=== PATIENT | female | born 2000 | race Caucasian/White ===

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

== ENCOUNTER 2022-03-22 20:19 | Observation (INO) | payer OTHER, SELFPAY ==
--- NOTE | 2022-03-22 21:28 | PM.OBTRLD ---
Visit Information Visit Information Date of evaluation: 03/22/22 Primary OB Provider: Channing Bragg On-call OB Provider: Jeri Gilbert Reason for Evaluation: Yes non-stress test Comments/Additional reasons for admission: Patient is a 22-year-old at 27 weeks and 3 days gestation brought in by EMS due to nausea, vomiting, vaginal discharge and pelvic pain. Today she has had significant nausea and vomiting to the point that she is unable to keep anything down. Baby has also been less active and she has had some pelvic pain. No bleeding but she also notes increased vaginal discharge. She has traveled recently. Vital Signs Vital Signs: Temperature 99.0? blood pressure 103/66 heart rate 88 PFSH Medical History Acne ADHD Anemia (~2020) Anxiety Autism Depression History of recurrent miscarriages Ovarian cyst (~2020) PID (acute pelvic inflammatory disease) PTSD (post-traumatic stress disorder) (~2019) Recurrent candidiasis of vagina Recurrent UTI (~2019) Seizures (~2002) Surgical History Anesthesia H/O hand surgery History of removal of skin mole Family History Father Diabetes mellitus Mental health problem Grandmother Diabetes mellitus Lung cancer Cancer Mental health problem Hypertension Grandfather Diabetes mellitus Prostate cancer Cancer History of heart disease Mental health problem Mother Gestational diabetes Diabetes mellitus Mental health problem Grandmother Cancer Hypertension Hyperlipidemia Grandfather Family estrangement Sister Depression Anxiety Schizophrenia Sister Anxiety Depression Bipolar disorder Sister Anxiety Depression Autism Brother Anxiety Depression Autism Mental health problem Sister Anxiety Autism Social History marital status: number of children: 0 household members: spouse lives independently: Yes housing: apartment pets and animals: Yes (1 dog 1 cat; aware of toxo) education level: high school occupational status: unemployed current occupational exposures/hazards: No special festus needs: No travel history: recent (domestic only) seatbelt use: always water heater temp set < 120 deg: No (Will call landlord to adjust ) working smoke detector in home: Yes fire extinguisher in home: Yes carbon monox detector in home: Yes firearms in home: Yes firearms unloaded and locked: Yes do you feel safe at home: Yes Smoking Status: Former smoker (former vape use, quit) second hand exposure: Yes (while visiting family (mom smokes)) alcohol intake: never substance use type: marijuana (quit when she learned she was ) during the past year weight has: other (fluctuates~15-20 lb) well-balanced diet: daily or most days daily servings fruits/ve-4 caffeine: Yes (occasionally, aware of 200mg limit) Type(s) of exercise: walking duration: 15-30 minutes/day Evaluation Evaluation Baseline heart rate: 140 Variability: Moderate (11-25) monitor accelerations: Present Monitor Decelerations: Absent Category of Tracing: Reactive Non-invasive Membranes Rupture Test: negative Diagnosis, Plan/Disposition Final Diagnosis (1) 27 weeks gestation of : Status: Acute (2) Gastroenteritis: Status: Acute Plan/Disposition Plan: 22-year-old at 27 weeks and 3 days gestation with nausea, vomiting, vaginal discharge and pelvic pain. NST reactive without concern for labor. AmniSure negative. UA not suggestive of UTI and wet mount also negative. Patient felt much improved after a L of LR and ondansetron IV. She has a OB appointment tomorrow morning with Dr. Bragg which she will keep. OB Disposition: home
[2022-03-22 21:47] LABS: Appearance Urine UA CLEAR; Bilirubin Urine UA NEGATIVE (NEGATIVE); Color Urine UA YELLOW; Glucose Urine UA NEGATIVE (Negative); Ketones Urine UA TRACE (NEGATIVE); Leukocyte Esterase Urine UA TRACE (NEGATIVE); Nitrite Urine UA NEGATIVE (Negative); Occult Blood Urine UA NEGATIVE (Negative); Protein Urine UA NEGATIVE (Negative); Specific Gravity Urine UA 1.025 (1.000-1.035); Urobilinogen Urine UA 0.2 E.U./dL (0.2)
[2022-03-22 21:53] LABS: RBC Urine None Seen (0-5/HPF); WBC Urine 1-5/HPF (0-5/HPF)
[2022-03-22 21:54] LABS: Bacteria Urine None Seen; Culture Indicated Urine Specimen Cultured; Mucus Urine 1+ (Negative)
[2022-03-22] MEDS: LACTATED RINGERS 500 ML 1000 ML IV (21:56)
[2022-03-22] MEDS: ONDANSETRON 4 MG/2 ML INJ IV (21:59)
[2022-03-22 22:15] LABS: COVID19 -Nasal RAPID Negative (Negative)
== END 2022-03-22 23:00 | disposition home or self-care (01) ==
PROVIDERS: Family Medicine; Admitting Provider Obstetrics & Gynecology; Referring Provider Obstetrics & Gynecology; Visit Provider Obstetrics & Gynecology
DX: O26.892 Other specified pregnancy related conditions, second trimester (principal); K52.9 Noninfective gastroenteritis and colitis, unspecified; Z20.822 Contact with and (suspected) exposure to COVID-19; Z3A.27 27 weeks gestation of pregnancy
CPT/HCPCS: 59025; 59050; 81001; 84112; 87086; 87210; 87635; 96360; C9803; G0378; G0379; J2405

== ENCOUNTER → 2022-03-23 08:50 | Outpatient (CLI) | payer OTHER, SELFPAY ==
[2022-03-23 10:19] LABS: Add Manual Diff / Slide Review NO; Basophils Absolute Auto 0 /uL (0-100); Basophils Percent Auto 0.5 % (0-2); Eosinophils Absolute Auto 100 /uL (0-450); Eosinophils Percent Auto 0.8 % (2-4); Hematocrit 29.3 % (36-46); Hemoglobin 9.8 g/dL (12.0-16.0); Lymphocytes Absolute Auto 1100 /uL (1100-4500); Lymphocytes Percent Auto 15.6 % (25-40); Mean Corpuscular HGB Conc 33.3 % (30-36); Mean Corpuscular Hemoglobin 26.2 PG (26-34); Mean Corpuscular Volume 78.7 fL (80-100); Monocytes Absolute Auto 600 /uL (0-900); Monocytes Percent Auto 8.9 % (3-14); Neutrophils Absolute Auto 5200 /uL (1500-7000); Neutrophils Percent Auto 74.2 % (50-75); Platelet Count 262 X10^3/uL (150-400); Red Blood Cell Count 3.72 X10^6/uL (4.0-5.2); Red Cell Distribution Width 14.2 % (11.6-14.8)
[2022-03-23 10:39] LABS: GTT (PREG) 1 Hour PP 50gm Dose 88 mg/dL (76-139)
[2022-03-23 11:11] LABS: Hepatitis B Surface Antigen NEGATIVE s/c (NEGATIVE); Rubella Antibody IgG 16.1 IU/mL (>15)
[2022-03-23 11:26] LABS: HIV 1 & 2 Ab/Ag 4th Gen Combo NEGATIVE (NEGATIVE); Hep C Virus Ab w/Reflex Quant NEGATIVE s/c (NEGATIVE)
[2022-03-24 08:36] LABS: RPR Screen Non Reactive (Non Reactive); Varicella IgG Antibody <135 index (Immune >165)
== END ==
PROVIDERS: Referring Provider Obstetrics & Gynecology; Visit Provider Obstetrics & Gynecology
DX: Z34.83 Encounter for supervision of other normal pregnancy, third trimester (principal); Z3A.27 27 weeks gestation of pregnancy
CPT/HCPCS: 36415; 80055; 82950; 86787; 86803; 86850; 86900; 86901; 87389

== ENCOUNTER 2022-03-24 12:38 | Observation (INO) | payer OTHER, SELFPAY ==
--- NOTE | 2022-03-24 | DI.US.S_ITS ---
PROCEDURE: US OB TRANSVAGINAL INDICATIONS: CERVICAL LENGTH OUTSIDE/PRIOR DATING DATA: Last menstrual period (LMP): 09/11/2021 LMP-based estimated date of delivery (CHINMAY): 06/18/2022 First dating scan (date and location): 11/09/2021 Estimated date of delivery (CHINMAY) from first dating scan: 06/16/2022 The calculations are made using the clinical CHINMAY of 06/18/2022 TECHNIQUE: Real-time scanning was performed of the fetus, with image documentation. Endovaginal scanning: Not performed. COMPARISON: [facility], , US OB <= 14 WEEKS FETUS, 12/02/2021, 14:18. FINDINGS: A single living intrauterine gestation is present. Presentation: Vertex Placenta: Placental position is posterior, without previa. Amniotic fluid index: 13.6 cm, normal range is 5-24 cm. Single deepest vertical pocket is 4.1 cm. heart rate: 149 beats per minute. Maternal cervical canal: 3.1 cm long. Normal lower limit is 2.5 cm. Clinically estimated gestational age: 27 weeks 5 days IMPRESSION: 1. Single live intrauterine . 2. Cervical length is normal at 3.1 cm. Internal cervical os is closed. Approved by: Brandon Mora M.D. on 03/24/2022 at 15:03
[2022-03-24 13:46] LABS: Appearance Urine UA CLEAR; Bilirubin Urine UA NEGATIVE (NEGATIVE); Color Urine UA YELLOW; Glucose Urine UA NEGATIVE (Negative); Ketones Urine UA TRACE (NEGATIVE); Leukocyte Esterase Urine UA TRACE (NEGATIVE); Nitrite Urine UA NEGATIVE (Negative); Occult Blood Urine UA NEGATIVE (Negative); Protein Urine UA NEGATIVE (Negative); Specific Gravity Urine UA <=1.005 (1.000-1.035); Urobilinogen Urine UA 0.2 E.U./dL (0.2); pH Urine UA 5.5 (4.5-8.0)
[2022-03-24 13:52] LABS: Bacteria Urine None Seen; Culture Indicated Urine Specimen Cultured; RBC Urine None Seen (0-5/HPF); WBC Urine 1-5/HPF (0-5/HPF)
[2022-03-24 13:58] LABS: Fetal Fibronectin Negative
[2022-03-24] MEDS: NIFEdipine 10 MG CAPSULE PO ×2 (14:02→14:19)
--- NOTE | 2022-03-24 14:50 | P.TNLD_ITS ---
Visit Information Visit Information Date of evaluation: 03/24/22 Primary OB Provider: Channing Bragg Reason for Evaluation: Yes pre-term labor Comments/Additional reasons for admission: Norma presents today with cramping since earlier today and may have passed some blood tinged mucus. [facility] Medical History Acne ADHD Anemia (~2020) Anxiety Autism Depression History of recurrent miscarriages Ovarian cyst (~2020) PID (acute pelvic inflammatory disease) PTSD (post-traumatic stress disorder) (~2019) Recurrent candidiasis of vagina Recurrent UTI (~2019) Seizures (~2002) Surgical History Anesthesia H/O hand surgery History of removal of skin mole Family History Father Diabetes mellitus Mental health problem Grandmother Diabetes mellitus Lung cancer Cancer Mental health problem Hypertension Grandfather Diabetes mellitus Prostate cancer Cancer History of heart disease Mental health problem Mother Gestational diabetes Diabetes mellitus Mental health problem Grandmother Cancer Hypertension Hyperlipidemia Grandfather Family estrangement Sister Depression Anxiety Schizophrenia Sister Anxiety Depression Bipolar disorder Sister Anxiety Depression Autism Brother Anxiety Depression Autism Mental health problem Sister Anxiety Autism Social History marital status: number of children: 0 household members: spouse lives independently: Yes housing: apartment pets and animals: Yes (1 dog 1 cat; aware of toxo) education level: high school occupational status: unemployed current occupational exposures/hazards: No special festus needs: No travel history: recent (domestic only) seatbelt use: always water heater temp set < 120 deg: No (Will call landlord to adjust ) working smoke detector in home: Yes fire extinguisher in home: Yes carbon monox detector in home: Yes firearms in home: Yes firearms unloaded and locked: Yes do you feel safe at home: Yes Smoking Status: Former smoker (former vape use, quit) second hand exposure: Yes (while visiting family (mom smokes)) alcohol intake: never substance use type: marijuana (quit when she learned she was ) during the past year weight has: other (fluctuates~15-20 lb) well-balanced diet: daily or most days daily servings fruits/ve-4 caffeine: Yes (occasionally, aware of 200mg limit) Type(s) of exercise: walking duration: 15-30 minutes/day Objective Labs Labs: Laboratory Results - last 24 hr 03/24/22 03/24/22 12:51 13:35 Urine Color Yellow Urine Appearance Clear Urine pH 5.5 Ur Specific [place] <=1.005 Urine Protein Negative Urine Glucose (UA) Negative Urine Ketones Trace H Urine Occult Blood Negative Urine Nitrate Negative Urine Bilirubin Negative Urine Urobilinogen 0.2 Ur Leukocyte Esterase Trace H Urine RBC None seen Urine WBC 1-5/hpf Urine Bacteria None seen Ur Culture Indicated? Specimen cultured Fibronectin Negative
== END 2022-03-24 15:25 | disposition home or self-care (01) ==
PROVIDERS: Admitting Provider Obstetrics & Gynecology; Referring Provider Obstetrics & Gynecology; Visit Provider Obstetrics & Gynecology
DX: O60.03 Preterm labor without delivery, third trimester (principal); Z3A.27 27 weeks gestation of pregnancy
CPT/HCPCS: 59025; 59050; 76817; 81001; 82731; 87086; G0378; G0379

== ENCOUNTER 2022-03-28 18:36 | Observation (INO) | payer OTHER, MEDICAID, SELFPAY ==
[2022-03-28 19:06] LABS: Appearance Urine UA CLEAR; Bilirubin Urine UA NEGATIVE (NEGATIVE); Color Urine UA YELLOW; Glucose Urine UA NEGATIVE (Negative); Ketones Urine UA NEGATIVE (NEGATIVE); Leukocyte Esterase Urine UA 1+ (NEGATIVE); Nitrite Urine UA NEGATIVE (Negative); Occult Blood Urine UA NEGATIVE (Negative); Protein Urine UA NEGATIVE (Negative); Specific Gravity Urine UA <=1.005 (1.000-1.035); Urobilinogen Urine UA 0.2 E.U./dL (0.2)
[2022-03-28 19:17] LABS: Bacteria Urine Few (2-10); Culture Indicated Urine Specimen Cultured; RBC Urine 0-1/HPF (0-5/HPF); Squamous Epithelial Cell Urine 1-5 /HPF (0-5/HPF); Transitional Epi Cells Urine 1-5/HPF (0-5/HPF); WBC Urine 10-30/HPF (0-5/HPF)
--- NOTE | 2022-03-28 19:45 | P.TNLD_ITS ---
Visit Information Visit Information Date of evaluation: 03/28/22 Primary OB Provider: Channing Bragg On-call OB Provider: Jeri Gilbert Reason for Evaluation: Yes rupture of membranes Comments/Additional reasons for admission: 22-year-old at 28 weeks and 2 days gestation concerned about possible rupture of membranes. Last night on 03/27/22 she had a small gush of fluid. She has not had ongoing leaking but has had urinary frequency and is using the bathroom several times an hour. Denies dysuria. She is also had some mild contractions however they have increased in frequency in the last hour to every 5 minutes. Contractions are not painful. Baby is active. She was seen in the center twice in the last week, the second time to rule out labor. [facility] Medical History Acne ADHD Anemia (~2020) Anxiety Autism Depression History of recurrent miscarriages Ovarian cyst (~2020) PID (acute pelvic inflammatory disease) PTSD (post-traumatic stress disorder) (~2019) Recurrent candidiasis of vagina Recurrent UTI (~2019) Seizures (~2002) Surgical History Anesthesia H/O hand surgery History of removal of skin mole Family History Father Diabetes mellitus Mental health problem Grandmother Diabetes mellitus Lung cancer Cancer Mental health problem Hypertension Grandfather Diabetes mellitus Prostate cancer Cancer History of heart disease Mental health problem Mother Gestational diabetes Diabetes mellitus Mental health problem Grandmother Cancer Hypertension Hyperlipidemia Grandfather Family estrangement Sister Depression Anxiety Schizophrenia Sister Anxiety Depression Bipolar disorder Sister Anxiety Depression Autism Brother Anxiety Depression Autism Mental health problem Sister Anxiety Autism Social History marital status: number of children: 0 household members: spouse lives independently: Yes housing: apartment pets and animals: Yes (1 dog 1 cat; aware of toxo) education level: high school occupational status: unemployed current occupational exposures/hazards: No special festus needs: No travel history: recent (domestic only) seatbelt use: always water heater temp set < 120 deg: No (Will call landlord to adjust ) working smoke detector in home: Yes fire extinguisher in home: Yes carbon monox detector in home: Yes firearms in home: Yes firearms unloaded and locked: Yes do you feel safe at home: Yes Smoking Status: Former smoker (former vape use, quit) second hand exposure: Yes (while visiting family (mom smokes)) alcohol intake: never substance use type: marijuana (quit when she learned she was ) during the past year weight has: other (fluctuates~15-20 lb) well-balanced diet: daily or most days daily servings fruits/ve-4 caffeine: Yes (occasionally, aware of 200mg limit) Type(s) of exercise: walking duration: 15-30 minutes/day Objective Labs Labs: Laboratory Results - last 24 hr 03/28/22 18:50 Urine Color Yellow Urine Appearance Clear Urine pH 6.0 Ur Specific [place] <=1.005 Urine Protein Negative Urine Glucose (UA) Negative Urine Ketones Negative Urine Occult Blood Negative Urine Nitrate Negative Urine Bilirubin Negative Urine Urobilinogen 0.2 Ur Leukocyte Esterase 1+ H Urine RBC 0-1/hpf Urine WBC 10-30/hpf H Ur Squamous Epith Cells 1-5 /hpf Ur Transition Epith Cell 1-5/hpf Urine Bacteria Few (2-10) H Ur Culture Indicated? Specimen cultured Evaluation Evaluation Baseline heart rate: 140 Variability: Moderate (11-25) monitor accelerations: Present Monitor Decelerations: Absent Contraction Frequency (minutes): 5 Uterine Contraction Intensity: Mild Category of Tracing: Reactive Non-invasive Membranes Rupture Test: negative Diagnosis, Plan/Disposition Final Diagnosis (1) 28 weeks gestation of : Status: Acute Plan/Disposition Plan: 22-year-old at 28 weeks and 2 days gestation. AmniSure was negative and patient was reassured she was not ruptured. NST reactive. UA not suggestive of UTI but will be sent for culture. She was having mild contractions on the monitor though patient did not rate them as painful. She had a labor workup 4 days ago with negative fibronectin and cervical length greater t lama 3 cm, reassuring against labor. She received 1 dose of nifedipine, contractions ceased and she felt much better. She will follow-up in clinic as scheduled or return sooner if needed. OB Disposition: home
[2022-03-28] MEDS: NIFEdipine 10 MG CAPSULE PO (20:00)
--- NOTE | 2022-04-04 20:00 | DI.US.S_ITS ---
PROCEDURE: US OB TRANSVAGINAL INDICATIONS: PTL OUTSIDE/PRIOR DATING DATA: Last menstrual period (LMP): 09/11/21. LMP-based estimated date of delivery (CHINMAY): 06/18/22. First dating scan (date and location): 11/09/21. Estimated date of delivery (CHINMAY) from first dating scan: 06/16/22. The calculations are made using the clinical CHINMAY of 06/18/22. TECHNIQUE: Real-time scanning was performed of the fetus, with image documentation. Endovaginal scanning: Performed for increased cervical detail COMPARISON: [facility], OB TRANSVAGINAL, 03/24/2022, 13:12. FINDINGS: A single living intrauterine gestation is present. Presentation: Vertex. Placenta: Placental position is posterior, without previa. Amniotic fluid index: 11.2 cm, normal range is 5-24 cm. Single deepest vertical pocket is 4.0 cm. heart rate: 144 beats per minute. Maternal cervical canal: Closed and 2.9 cm long. Normal lower limit is 2.5 cm. This was measured via transvaginal imaging. Clinically estimated gestational age: 29 weeks two days IMPRESSION: 1. Single living intrauterine in vertex presentation. 2. Closed cervix measuring 2.9 cm. Dictated by: Hannah Hollingsworth M.D. on 04/04/2022 at 21:23 Approved by: Hannah Hollingsworth M.D. on 04/04/2022 at 21:25
[2022-04-04 20:26] LABS: Appearance Urine UA CLEAR; Bilirubin Urine UA NEGATIVE (NEGATIVE); Color Urine UA YELLOW; Glucose Urine UA NEGATIVE (Negative); Ketones Urine UA NEGATIVE (NEGATIVE); Leukocyte Esterase Urine UA NEGATIVE (NEGATIVE); Nitrite Urine UA NEGATIVE (Negative); Occult Blood Urine UA NEGATIVE (Negative); Protein Urine UA NEGATIVE (Negative); Urobilinogen Urine UA 0.2 E.U./dL (0.2)
[2022-04-04 20:36] LABS: Bacteria Urine None Seen; Culture Indicated Urine Cult Not Indicated; RBC Urine None Seen (0-5/HPF); Squamous Epithelial Cell Urine 1-5 /HPF (0-5/HPF); WBC Urine 1-5/HPF (0-5/HPF)
[2022-04-04 20:51] LABS: Fetal Fibronectin Negative
== END 2022-03-28 20:50 | disposition home or self-care (01) ==
LOC: LABOR 18:38
PROVIDERS: Admitting Provider Family Medicine; Referring Provider Family Medicine; Visit Provider Family Medicine
DX: Z03.71 Encounter for suspected problem with amniotic cavity and membrane ruled out (principal); O47.03 False labor before 37 completed weeks of gestation, third trimester; Z3A.28 28 weeks gestation of pregnancy
CPT/HCPCS: 59025; 59050; 81001; 82731; 84112; 87086; G0378; G0379

== ENCOUNTER 2022-04-04 19:55 | Outpatient (CLI) | payer OTHER, MEDICAID, SELFPAY ==
--- NOTE | 2022-04-04 21:37 | PM.CALLCOV.1 ---
Call Coverage Note Note Date of Patient Contact: 04/04/22 Time of Patient Contact: 21:37 Narrative of Care Provided: FYI: Norma is a 22 year old who just discharged home after being seen in triage for pelvic pain and contractions at 30 weeks. Negative ffn, cervical length US 2.7 cm, 2 contractions noticed in approx 1 hour during RNST. RN reassured her about pelvic changes of . d/c home.
--- NOTE | 2022-04-04 21:41 | P.TNLD_ITS ---
Visit Information Visit Information Date of evaluation: 04/04/22 Primary OB Provider: Channing Bragg On-call OB Provider: Jennifer Kellogg Reason for Evaluation: Yes non-stress test and Yes other Comments/Additional reasons for admission: Rule out pre-term labor Norma called concerned about contractions and pelvic pain most of the day. Contractions were every 10-30 minutes, lasting a minute. Baby moving well. Denies loss of fluid. Pelvic pain is new and feels like her body is opening up. Vital Signs Vital Signs: 103/63 93 bpm 37.3 C [facility] Medical History Acne ADHD Anemia (~2020) Anxiety Autism Depression History of recurrent miscarriages Ovarian cyst (~2020) PID (acute pelvic inflammatory disease) PTSD (post-traumatic stress disorder) (~2019) Recurrent candidiasis of vagina Recurrent UTI (~2019) Seizures (~2002) Surgical History Anesthesia H/O hand surgery History of removal of skin mole Family History Father Diabetes mellitus Mental health problem Grandmother Diabetes mellitus Lung cancer Cancer Mental health problem Hypertension Grandfather Diabetes mellitus Prostate cancer Cancer History of heart disease Mental health problem Mother Gestational diabetes Diabetes mellitus Mental health problem Grandmother Cancer Hypertension Hyperlipidemia Grandfather Family estrangement Sister Depression Anxiety Schizophrenia Sister Anxiety Depression Bipolar disorder Sister Anxiety Depression Autism Brother Anxiety Depression Autism Mental health problem Sister Anxiety Autism Social History marital status: number of children: 0 household members: spouse lives independently: Yes housing: apartment pets and animals: Yes (1 dog 1 cat; aware of toxo) education level: high school occupational status: unemployed current occupational exposures/hazards: No special festus needs: No travel history: recent (domestic only) seatbelt use: always water heater temp set < 120 deg: No (Will call landlord to adjust ) working smoke detector in home: Yes fire extinguisher in home: Yes carbon monox detector in home: Yes firearms in home: Yes firearms unloaded and locked: Yes do you feel safe at home: Yes Smoking Status: Former smoker (former vape use, quit) second hand exposure: Yes (while visiting family (mom smokes)) alcohol intake: never substance use type: marijuana (quit when she learned she was ) during the past year weight has: other (fluctuates~15-20 lb) well-balanced diet: daily or most days daily servings fruits/ve-4 caffeine: Yes (occasionally, aware of 200mg limit) Type(s) of exercise: walking duration: 15-30 minutes/day Review of Systems Review of Systems Narrative: All negative except as stated in HPI. Objective Imaging ultrasound for cervical length: My impression: Normal cervical length for 30 weeks of (currently 2.9 cm; was 3.1 on 03/24/22). Normal WENDI. Radiologist's impression: 1. Single living intrauterine in vertex presentation. ? 2. Closed cervix measuring 2.9 cm. Labs Labs: fibronectin negative UA negative. Negative UC 03/28/22. Evaluation Evaluation Baseline heart rate: 130 Variability: Moderate (11-25) monitor accelerations: Present Monitor Decelerations: Absent Comments: irregular contractions, SVE not done Diagnosis, Plan/Disposition Final Diagnosis (1) uterine contractions: Status: Acute Plan/Disposition Plan: Rule out cervical changes consistent with labor with cervical length ultrasound Offer nifedipine for reassurance; Norma declines NST UA MDM - OB/Uterine Contractions MDM Narrative Medical decision making narrative: Pre-term contractions without abnormal cervical change. 03/24/22 CL: 3.1 cm 04/04/22 CL: 2.9 cm Lab Data Negative UA negative Ffn
== END 2022-04-04 21:20 | disposition home or self-care (01) ==
LOC: LABOR 19:59 → OB 04-07 16:15
PROVIDERS: Referring Provider Advanced Practice Midwife; Visit Provider Advanced Practice Midwife
DX: O47.03 False labor before 37 completed weeks of gestation, third trimester (principal); Z3A.29 29 weeks gestation of pregnancy
CPT/HCPCS: 59025; 76817; G0378; G0379

== ENCOUNTER 2022-04-12 15:41 | Outpatient (CLI) | payer OTHER, MEDICAID, SELFPAY | END 2022-04-12 16:55 | disposition home or self-care (01) | LOC: LABOR 16:58 → OB 04-15 13:48 | PROVIDERS: Referring Provider Obstetrics & Gynecology; Visit Provider Obstetrics & Gynecology | DX: O42.913 Preterm premature rupture of membranes, unspecified as to length of time between rupture and onset of labor, third trimester (principal); Z3A.30 30 weeks gestation of pregnancy | CPT/HCPCS: 59025; 84112; G0378; G0379 ==

== ENCOUNTER 2022-04-17 14:21 | Outpatient (CLI) | payer OTHER, MEDICAID, SELFPAY ==
[2022-04-17 15:14] LABS: Creatinine Urine Random 139.7 mg/dL
[2022-04-17 15:20] LABS: Protein (Total) Urine Random < 5 mg/dL (0-12); Protein Creatinine Ratio Urine 0.03 GRAM/24H
[2022-04-17 15:24] LABS: Add Manual Diff / Slide Review NO; Basophils Absolute Auto 100 /uL (0-100); Basophils Percent Auto 0.4 % (0-2); Eosinophils Absolute Auto 100 /uL (0-450); Eosinophils Percent Auto 0.5 % (2-4); Hematocrit 29.7 % (36-46); Hemoglobin 9.4 g/dL (12.0-16.0); Lymphocytes Absolute Auto 2000 /uL (1100-4500); Lymphocytes Percent Auto 17.4 % (25-40); Mean Corpuscular HGB Conc 31.7 % (30-36); Mean Corpuscular Hemoglobin 24.6 PG (26-34); Mean Corpuscular Volume 77.5 fL (80-100); Monocytes Absolute Auto 800 /uL (0-900); Monocytes Percent Auto 6.6 % (3-14); Neutrophils Absolute Auto 8500 /uL (1500-7000); Neutrophils Percent Auto 75.1 % (50-75); Platelet Count 268 X10^3/uL (150-400); Red Blood Cell Count 3.84 X10^6/uL (4.0-5.2); White Blood Cell Count 11.4 X10^3/uL (4.5-11.0)
[2022-04-17 15:45] LABS: Aspartate Aminotransferase 24 IU/L (14-36); BUN Creatinine Ratio 14.9 (6-22); Blood Urea Nitrogen 7 mg/dL (7-17); Estimated Glomerular Filt Rate > 60 mL/min (>60); Uric Acid 4.3 mg/dL (2.5-6.2)
== END 2022-04-17 16:11 | disposition home or self-care (01) ==
LOC: LABOR 14:25 → OB 04-21 06:58
PROVIDERS: Obstetrics & Gynecology; Referring Provider Obstetrics & Gynecology; Visit Provider Obstetrics & Gynecology
DX: O36.8130 Decreased fetal movements, third trimester, not applicable or unspecified (principal); O16.3 Unspecified maternal hypertension, third trimester; Z3A.31 31 weeks gestation of pregnancy
CPT/HCPCS: 36415; 59025; 59050; 82570; 84156; 84450; 84550; 85025; G0378; G0379

== ENCOUNTER 2022-04-21 23:43 | Outpatient (CLI) | payer OTHER, MEDICAID, SELFPAY ==
--- NOTE | 2022-04-22 14:54 | P.TNLD_ITS ---
Visit Information Visit Information Date of evaluation: 04/21/22 Primary OB Provider: Channing Bragg On-call OB Provider: Ioana Cavanaugh Reason for Evaluation: Yes non-stress test non-stress test reason: decreased movement Comments/Additional reasons for admission: 22YO @ [id number] here for evaluation of decreased movement. Had been feeling more cramping today and took 3 additional doses of nifedipine. Then felt a little dizzy and like her heart was racing. contractions have slowed, but now not feeling much movement and is worried. Also feeling occasional stabbing pain, low in her pelvis and wondering what it is. No vaginal bleeding or leaking of fluid. Vital Signs Vital Signs: see below [facility] Medical History Acne ADHD Anemia (~2020) Anxiety Autism Depression History of recurrent miscarriages Ovarian cyst (~2020) PID (acute pelvic inflammatory disease) PTSD (post-traumatic stress disorder) (~2019) Recurrent candidiasis of vagina Recurrent UTI (~2019) Seizures (~2002) Surgical History Anesthesia H/O hand surgery History of removal of skin mole Family History Father Diabetes mellitus Mental health problem Grandmother Diabetes mellitus Lung cancer Cancer Mental health problem Hypertension Grandfather Diabetes mellitus Prostate cancer Cancer History of heart disease Mental health problem Mother Gestational diabetes Diabetes mellitus Mental health problem Grandmother Cancer Hypertension Hyperlipidemia Grandfather Family estrangement Sister Depression Anxiety Schizophrenia Sister Anxiety Depression Bipolar disorder Sister Anxiety Depression Autism Brother Anxiety Depression Autism Mental health problem Sister Anxiety Autism Social History marital status: number of children: 0 household members: spouse lives independently: Yes housing: apartment pets and animals: Yes (1 dog 1 cat; aware of toxo) education level: high school occupational status: unemployed current occupational exposures/hazards: No special festus needs: No travel history: recent (domestic only) seatbelt use: always water heater temp set < 120 deg: No (Will call landlord to adjust ) working smoke detector in home: Yes fire extinguisher in home: Yes carbon monox detector in home: Yes firearms in home: Yes firearms unloaded and locked: Yes do you feel safe at home: Yes Smoking Status: Former smoker (former vape use, quit) second hand exposure: Yes (while visiting family (mom smokes)) alcohol intake: never substance use type: marijuana (quit when she learned she was ) during the past year weight has: other (fluctuates~15-20 lb) well-balanced diet: daily or most days daily servings fruits/ve-4 caffeine: Yes (occasionally, aware of 200mg limit) Type(s) of exercise: walking duration: 15-30 minutes/day Exam Vital Signs (past 8 hours): BP 99/58, HR 99bpm, RR 18, T 98.0 Evaluation Evaluation Baseline heart rate: 138 Variability: Moderate (11-25) monitor accelerations: Present Monitor Decelerations: Absent Comments: No contractions. CE deferred. Diagnosis, Plan/Disposition Final Diagnosis (1) Decreased movement affecting management of in third trimester: Status: Acute Plan/Disposition Plan: Continue PTL precautions w/ daily nifedipine 60 mg and 10 mg PO q 20 minutes x up to 4 doses PRN increased contraction frequency AND contact the office or BC if contractions don't subside promptly with initiation of PRN nifedipine.?Reassurance given for reactive NST. ?RN counseled patient on likely cervical pain with reassurance of normal. Reviewed warning sx and when to call. RTC as previously scheduled. OB Disposition: home
== END 2022-04-22 00:25 | disposition home or self-care (01) ==
LOC: LABOR 23:47 → OB 04-22 15:52
PROVIDERS: Referring Provider Nurse Practitioner Obstetrics & Gynecology; Visit Provider Nurse Practitioner Obstetrics & Gynecology
DX: O36.8130 Decreased fetal movements, third trimester, not applicable or unspecified (principal); Z3A.31 31 weeks gestation of pregnancy
CPT/HCPCS: 59025; G0378; G0379

== ENCOUNTER → 2022-05-06 14:25 | Outpatient (CLI) | payer OTHER, MEDICAID, SELFPAY ==
[2022-05-06 16:17] LABS: Appearance Urine UA SL CLOUDY; Color Urine UA ORANGE; RBC Urine 1-5/HPF (0-5/HPF); WBC Urine 30-100/HPF (0-5/HPF)
[2022-05-06 16:18] LABS: Bacteria Urine Many (>30); Culture Indicated Urine Specimen Cultured; Squamous Epithelial Cell Urine 10-30 /HPF (0-5/HPF)
== END ==
PROVIDERS: Referring Provider Specialist; Visit Provider Specialist
DX: R30.0 Dysuria (principal)
CPT/HCPCS: 81001; 87086

== ENCOUNTER 2022-05-10 17:35 | Outpatient (CLI) | payer OTHER, MEDICAID, SELFPAY ==
--- NOTE | 2022-05-10 18:05 | P.TNLD_ITS ---
Visit Information Visit Information Date of evaluation: 05/10/22 On-call OB Provider: Seema Lora Reason for Evaluation: Yes other Comments/Additional reasons for admission: 22-year-old 5 para 0 at 34 weeks 3 days Complaints of possible preeclampsia symptoms with elevated blood pressure at home with headache Vital Signs Vital Signs: Blood pressure 115/73, pulse 103, temperature 36.2? [facility] Medical History Acne ADHD Anemia (~2020) Anxiety Autism Depression History of recurrent miscarriages Ovarian cyst (~2020) PID (acute pelvic inflammatory disease) PTSD (post-traumatic stress disorder) (~2019) Recurrent candidiasis of vagina Recurrent UTI (~2019) Seizures (~2002) Surgical History Anesthesia H/O hand surgery History of removal of skin mole Family History Father Diabetes mellitus Mental health problem Grandmother Diabetes mellitus Lung cancer Cancer Mental health problem Hypertension Grandfather Diabetes mellitus Prostate cancer Cancer History of heart disease Mental health problem Mother Gestational diabetes Diabetes mellitus Mental health problem Grandmother Cancer Hypertension Hyperlipidemia Grandfather Family estrangement Sister Depression Anxiety Schizophrenia Sister Anxiety Depression Bipolar disorder Sister Anxiety Depression Autism Brother Anxiety Depression Autism Mental health problem Sister Anxiety Autism Social History marital status: number of children: 0 household members: spouse lives independently: Yes housing: apartment pets and animals: Yes (1 dog 1 cat; aware of toxo) education level: high school occupational status: unemployed current occupational exposures/hazards: No special festus needs: No travel history: recent (domestic only) seatbelt use: always water heater temp set < 120 deg: No (Will call landlord to adjust ) working smoke detector in home: Yes fire extinguisher in home: Yes carbon monox detector in home: Yes firearms in home: Yes firearms unloaded and locked: Yes do you feel safe at home: Yes Smoking Status: Former smoker (former vape use, quit) second hand exposure: Yes (while visiting family (mom smokes)) alcohol intake: never substance use type: marijuana (quit when she learned she was ) during the past year weight has: other (fluctuates~15-20 lb) well-balanced diet: daily or most days daily servings fruits/ve-4 caffeine: Yes (occasionally, aware of 200mg limit) Type(s) of exercise: walking duration: 15-30 minutes/day Review of Systems Review of Systems Narrative: Patient complains of mild headache and her forehead. No scotomata or epigastric pain. Good movement. No contractions. No fevers. Exam Narrative Exam Narrative: HEENT exam within normal limits. Extremities without edema. DTRs are normal. Objective Labs 05/10/22 17:54 05/10/22 17:54 Evaluation Evaluation Baseline heart rate: 130 Variability: Moderate (11-25) monitor accelerations: Present Monitor Decelerations: Absent Contraction Frequency (minutes): 0 Category of Tracing: Reactive Status: Category l Diagnosis, Plan/Disposition Final Diagnosis (1) headache in third trimester: Status: Acute Plan/Disposition Plan: Blood pressures are in the normal range here despite being elevated at home. Urine protein pending but other PIH labs are normal. Patient is reassured. Follow up at our normal OB appointment. OB Disposition: home
[2022-05-10 18:09] LABS: Add Manual Diff / Slide Review NO; Basophils Absolute Auto 0 /uL (0-100); Basophils Percent Auto 0.4 % (0-2); Eosinophils Absolute Auto 100 /uL (0-450); Eosinophils Percent Auto 0.6 % (2-4); Hemoglobin 10.3 g/dL (12.0-16.0); Lymphocytes Absolute Auto 2600 /uL (1100-4500); Mean Corpuscular HGB Conc 32.2 % (30-36); Mean Corpuscular Hemoglobin 23.9 PG (26-34); Monocytes Absolute Auto 700 /uL (0-900); Neutrophils Absolute Auto 8900 /uL (1500-7000); Platelet Count 289 X10^3/uL (150-400); Red Blood Cell Count 4.32 X10^6/uL (4.0-5.2); Red Cell Distribution Width 15.9 % (11.6-14.8); White Blood Cell Count 12.4 X10^3/uL (4.5-11.0)
[2022-05-10 18:20] LABS: Aspartate Aminotransferase 23 IU/L (14-36); Blood Urea Nitrogen 7 mg/dL (7-17); Estimated Glomerular Filt Rate > 60 mL/min (>60); Uric Acid 5.6 mg/dL (2.5-6.2)
[2022-05-10 18:27] LABS: Creatinine Urine Random 57.6 mg/dL; Protein (Total) Urine Random 7 mg/dL (0-12); Protein Creatinine Ratio Urine 0.12 GRAM/24H
== END 2022-05-10 18:30 | disposition home or self-care (01) ==
LOC: LABOR 17:40 → OB 05-13 07:01
PROVIDERS: Referring Provider Specialist; Visit Provider Specialist
DX: O26.893 Other specified pregnancy related conditions, third trimester (principal); R51.9 Headache, unspecified; R03.0 Elevated blood-pressure reading, without diagnosis of hypertension; Z3A.34 34 weeks gestation of pregnancy
CPT/HCPCS: 59025; 82570; 84156; 84450; 84550; 85025; G0378; G0379

== ENCOUNTER 2022-05-19 21:06 | Outpatient (CLI) | payer OTHER, MEDICAID, SELFPAY | END 2022-05-19 21:54 | disposition home or self-care (01) | LOC: OB 05-20 16:54 | PROVIDERS: Referring Provider Family Medicine; Visit Provider Family Medicine | DX: O26.853 Spotting complicating pregnancy, third trimester (principal); Z3A.35 35 weeks gestation of pregnancy | CPT/HCPCS: 59025; G0378; G0379 ==

== ENCOUNTER 2022-05-22 18:46 | Outpatient (CLI) | payer OTHER, MEDICAID, SELFPAY ==
--- NOTE | 2022-05-22 20:11 | PM.OBTRLD ---
Visit Information Visit Information Date of evaluation: 05/22/22 On-call OB Provider: Ioana Cavanaugh Reason for Evaluation: Yes rule out labor Comments/Additional reasons for admission: 22YO @ [id number] here for evaluation of contractions. Has been experiencing contractions since last night that have steadily progressed in frequency and intensity. Now feeling contractions that are rated at a 6/10 pain every 2-7 minutes. +FM. No vaginal bleeding or leaking of fluid. Vital Signs Vital Signs: BP 118/73mmHg, HR 88, RR 16/min, T 36.6C Temporal PFSH Medical History Acne ADHD Anemia (~2020) Anxiety Autism Depression History of recurrent miscarriages Ovarian cyst (~2020) PID (acute pelvic inflammatory disease) PTSD (post-traumatic stress disorder) (~2019) Recurrent candidiasis of vagina Recurrent UTI (~2019) Seizures (~2002) Surgical History Anesthesia H/O hand surgery History of removal of skin mole Family History Father Diabetes mellitus Mental health problem Grandmother Diabetes mellitus Lung cancer Cancer Mental health problem Hypertension Grandfather Diabetes mellitus Prostate cancer Cancer History of heart disease Mental health problem Mother Gestational diabetes Diabetes mellitus Mental health problem Grandmother Cancer Hypertension Hyperlipidemia Grandfather Family estrangement Sister Depression Anxiety Schizophrenia Sister Anxiety Depression Bipolar disorder Sister Anxiety Depression Autism Brother Anxiety Depression Autism Mental health problem Sister Anxiety Autism Social History marital status: number of children: 0 household members: spouse lives independently: Yes housing: apartment pets and animals: Yes (1 dog 1 cat; aware of toxo) education level: high school occupational status: unemployed current occupational exposures/hazards: No special festus needs: No travel history: recent (domestic only) seatbelt use: always water heater temp set < 120 deg: No (Will call landlord to adjust ) working smoke detector in home: Yes fire extinguisher in home: Yes carbon monox detector in home: Yes firearms in home: Yes firearms unloaded and locked: Yes do you feel safe at home: Yes Smoking Status: Former smoker (former vape use, quit) second hand exposure: Yes (while visiting family (mom smokes)) alcohol intake: never substance use type: marijuana (quit when she learned she was ) during the past year weight has: other (fluctuates~15-20 lb) well-balanced diet: daily or most days daily servings fruits/ve-4 caffeine: Yes (occasionally, aware of 200mg limit) Type(s) of exercise: walking duration: 15-30 minutes/day Exam Vital Signs (past 8 hours): See above GI Other: vertex Evaluation Evaluation Baseline heart rate: 130 Variability: Moderate (11-25) monitor accelerations: Present Monitor Decelerations: Absent Contraction Frequency (minutes): 3 Uterine Contraction Intensity: Mild Category of Tracing: Reactive Cervical dilation (cm): 1 Cervical effacement (%): 50 station: -3 Comments: CE by RN Diagnosis, Plan/Disposition Final Diagnosis (1) False labor before 37 completed weeks of gestation: Status: Acute Problem details: Follow-up with primary OB provider as previously scheduled. Encouraged her to call and return if contractions intensity. Plan/Disposition OB Disposition: home (GBS PCR and UA pending, will call with results)
[2022-05-22 20:13] LABS: Appearance Urine UA CLEAR; Bilirubin Urine UA NEGATIVE (NEGATIVE); Color Urine UA YELLOW; Glucose Urine UA NEGATIVE (Negative); Ketones Urine UA NEGATIVE (NEGATIVE); Leukocyte Esterase Urine UA TRACE (NEGATIVE); Nitrite Urine UA POSITIVE (Negative); Occult Blood Urine UA NEGATIVE (Negative); Protein Urine UA NEGATIVE (Negative); Urobilinogen Urine UA 0.2 E.U./dL (0.2)
[2022-05-22 20:19] LABS: Bacteria Urine Occasional (0-1); Culture Indicated Urine Specimen Cultured; RBC Urine 0-1/HPF (0-5/HPF); Squamous Epithelial Cell Urine 1-5 /HPF (0-5/HPF); WBC Urine 5-10/HPF (0-5/HPF)
[2022-05-22 20:41] LABS: Strep Grp B PCR POS for Grp B Strep
== END 2022-05-22 20:13 | disposition home or self-care (01) ==
LOC: LABOR 20:00 → OB 05-31 08:51
PROVIDERS: Referring Provider Nurse Practitioner Obstetrics & Gynecology; Visit Provider Nurse Practitioner Obstetrics & Gynecology
DX: O47.03 False labor before 37 completed weeks of gestation, third trimester (principal); Z3A.36 36 weeks gestation of pregnancy
CPT/HCPCS: 59025; 81001; 87086; 87653; G0378; G0379

== ENCOUNTER 2022-05-23 00:19 | Outpatient (CLI) | payer OTHER, MEDICAID, SELFPAY | END 2022-05-23 01:08 | disposition home or self-care (01) | LOC: OB 05-31 08:51 | PROVIDERS: Referring Provider Obstetrics & Gynecology; Visit Provider Nurse Practitioner Obstetrics & Gynecology | DX: O60.03 Preterm labor without delivery, third trimester (principal); Z3A.36 36 weeks gestation of pregnancy | CPT/HCPCS: 59025; G0378; G0379 ==

== ENCOUNTER 2022-06-01 13:58 | Outpatient (CLI) | payer OTHER, MEDICAID, SELFPAY | END 2022-06-01 14:35 | disposition home or self-care (01) | LOC: LABOR 14:27 → OB 08-11 10:23 | PROVIDERS: Referring Provider Obstetrics & Gynecology; Visit Provider Obstetrics & Gynecology | DX: Z03.71 Encounter for suspected problem with amniotic cavity and membrane ruled out (principal); Z3A.37 37 weeks gestation of pregnancy | CPT/HCPCS: 59025; 84112; G0378; G0379 ==

== ENCOUNTER 2022-06-01 20:01 | Outpatient (CLI) | payer OTHER, MEDICAID, SELFPAY | END 2022-06-01 21:05 | disposition home or self-care (01) | LOC: OB 08-11 10:22 | PROVIDERS: Referring Provider Obstetrics & Gynecology; Visit Provider Obstetrics & Gynecology | DX: Z03.71 Encounter for suspected problem with amniotic cavity and membrane ruled out (principal); Z3A.37 37 weeks gestation of pregnancy | CPT/HCPCS: 59025; 84112; G0378; G0379 ==

== ENCOUNTER 2022-06-10 19:41 | Inpatient (IN) | payer OTHER, MEDICAID, SELFPAY ==
[2022-06-10 20:00] VITALS: BP 122/79
[2022-06-10 20:49] LABS: Add Manual Diff / Slide Review NO; Basophils Absolute Auto 0 /uL (0-100); Basophils Percent Auto 0.4 % (0-2); Eosinophils Absolute Auto 0 /uL (0-450); Eosinophils Percent Auto 0.4 % (2-4); Hematocrit 36.7 % (36-46); Hemoglobin 12.2 g/dL (12.0-16.0); Lymphocytes Absolute Auto 2900 /uL (1100-4500); Lymphocytes Percent Auto 26.3 % (25-40); Mean Corpuscular HGB Conc 33.2 % (30-36); Mean Corpuscular Hemoglobin 26.8 PG (26-34); Mean Corpuscular Volume 80.9 fL (80-100); Monocytes Absolute Auto 1000 /uL (0-900); Monocytes Percent Auto 8.9 % (3-14); Neutrophils Absolute Auto 6900 /uL (1500-7000); Platelet Count 193 X10^3/uL (150-400); Red Blood Cell Count 4.53 X10^6/uL (4.0-5.2); Red Cell Distribution Width 27.3 % (11.6-14.8); White Blood Cell Count 10.9 X10^3/uL (4.5-11.0)
[2022-06-10 21:06] LABS: Anisocytosis 2+
[2022-06-10] MEDS: miSOPROStoL 25 MCG TABLET 50 MCG PO (22:25)
--- NOTE | 2022-06-10 22:50 | PM.OBHP.1 ---
OB HPI Date/Time Date of admission: 06/10/22 Date Patient Seen: 06/10/22 Time Patient Seen: 22:50 History of Present Condition Chief complaint: IUP, 38+6 wks EGA, Xtreme mat. discomfort, GBS+ : 5 Para: 0 Estimated Date of Delivery: 06/18/22 Estimated Gestational Age (weeks): 38+6 Narrative: Norma Pettit is a 22 year old [facility] 06/18/2022 admitted now at 38+6 weeks EGA for ripening/induction due to incapacitating left sided hip pain. Aside from some premature contractions in the 3rd trimester, her course has been largely uneventful with firm dating and appropriate milestones throughout. GBS is positive. Indications Indication for induction OB: other (Severe, unrelenting left hip pain) History of Present care: good care Dating criteria: LMP confirmed by 1st trimester US Ultrasounds: normal 1st trimester US and normal mid trimester US Obstetrical complications: none Medical complications: none Preadmission Labs Blood type: O (+) positive -: Antibody screen: negative, GBS status: positive, HBsAG: negative, HIV: negative and RPR/VDLR: negative -: Chlamydia screen: not detected and Gonorrhea screen: not detected -: Rubella: immune and Varicella: not immune HCT: 36.7 HCAB: negative PAP: Normal Quad screen: Normal (AFP screening is negative ) Cell-free DNA: Low risk female 1 hr GTT: 88 Prior (ies) History: SAB x4 Evaluation Evaluation Baseline heart rate: 130 Variability: Moderate (11-25) monitor accelerations: Present Monitor Decelerations: Absent Contraction Frequency (minutes): 4 Uterine Contraction Intensity: Moderate Category of Tracing: Reactive Status: Category l Dilation (cm): 1 Effacement (%): 80 Dilation: 1-2 cm Effacement: >/=80% station: -1 Position of cervix: mid Consistency: soft Ostomayor score: 9 PFSH Medical History Acne ADHD Anemia (~2020) Anxiety Autism Depression History of recurrent miscarriages Ovarian cyst (~2020) PID (acute pelvic inflammatory disease) PTSD (post-traumatic stress disorder) (~2019) Recurrent candidiasis of vagina Recurrent UTI (~2019) Seizures (~2002) Surgical History Anesthesia H/O hand surgery History of removal of skin mole Family History Father Diabetes mellitus Mental health problem Grandmother Diabetes mellitus Lung cancer Cancer Mental health problem Hypertension Grandfather Diabetes mellitus Prostate cancer Cancer History of heart disease Mental health problem Mother Gestational diabetes Diabetes mellitus Mental health problem Grandmother Cancer Hypertension Hyperlipidemia Grandfather Family estrangement Sister Depression Anxiety Schizophrenia Sister Anxiety Depression Bipolar disorder Sister Anxiety Depression Autism Brother Anxiety Depression Autism Mental health problem Sister Anxiety Autism Social History marital status: number of children: 0 household members: spouse lives independently: Yes housing: apartment pets and animals: Yes (1 dog 1 cat; aware of toxo) education level: high school occupational status: unemployed current occupational exposures/hazards: No special festus needs: No travel history: recent (domestic only) seatbelt use: always water heater temp set < 120 deg: No (Will call landlord to adjust ) working smoke detector in home: Yes fire extinguisher in home: Yes carbon monox detector in home: Yes firearms in home: Yes firearms unloaded and locked: Yes do you feel safe at home: Yes Smoking Status: Never smoker second hand exposure: Yes (while visiting family (mom smokes)) alcohol intake: never substance use type: marijuana (quit when she learned she was ) during the past year weight has: other (fluctuates~15-20 lb) well-balanced diet: daily or most days daily servings fruits/ve-4 caffeine: Yes (occasionally, aware of 200mg limit) Type(s) of exercise: walking duration: 15-30 minutes/day Meds Home Medications and Allergies Home Medications Medication Instructions Recorded Confirmed Type sertraline 25 mg tablet See Rx Instructions PO .COMPLEX 12/02/21 06/10/22 Rx #60 tabs Allergies Allergy/AdvReac Type Severity Reaction Status Date / Time cantaloupe AdvReac Mild Rash Verified 06/11/22 03:58 Review of Systems Review of Systems Narrative: Problem-specific ROS positives included in HPI OB Exam Vital signs Blood Pressure: 112/64 Pulse Rate: 82 Respiratory Rate: 16 Temperature: 97.9 F HENIA Head: normal to inspection, normocephalic and atraumatic Eyes General: appearance normal, both eyes and all related structures Resp Effort & Inspection: normal respiratory effort and able to speak in complete sentences Auscultation: clear to auscultation bilaterally Cardio Rate: regular rate Rhythm: regular rhythm Heart Sounds: S1 normal, S2 normal and no murmurs Extremities Lower extremity: Yes normal to inspection GI Inspection: normal to inspection Palpation: Yes soft and Yes no hepatosplenomegaly Uterus Location (Fundal Height): 36 Presentation: vertex Estimated Weight (lbs): 7 Objective Labs 06/10/22 20:15 Labs: Laboratory Results - last 24 hr 06/10/22 06/10/22 20:15 20:15 WBC 10.9 RBC 4.53 Hgb 12.2 Hct 36.7 MCV 80.9 MCH 26.8 MCHC 33.2 RDW 27.3 H Plt Count 193 Neut % (Auto) 64.0 Lymph % (Auto) 26.3 [place] % (Auto) 8.9 Eos % (Auto) 0.4 L Baso % (Auto) 0.4 Neut # (Auto) 6900 Lymph # (Auto) 2900 [place] # (Auto) 1000 H Eos # (Auto) 0 Baso # (Auto) 0 RBC Morphology See below Anisocytosis 2+ H Blood Type O Positive Antibody Screen Negative Assessment and Plan Assessment and Plan Assessment and Plan narrative: ASSESSMENT 1. Intrauterine , 39+0 wks EGA 2. Severe left hip pain 3. GBS positive status PLAN 1. Admit for ripening and induction due to hip pain 2. See admission orders Time Spent with Patient Total time spent with greater than 50% in coordination of care (as documented) at patient's floor/unit and/or counseling patient:: 15-24 minutes
[2022-06-10] MEDS: ZOLPIDEM 5 MG TABLET PO (23:13)
[2022-06-11] MEDS: miSOPROStoL 25 MCG TABLET 50 MCG PO ×2 (02:28→06:24)
[2022-06-11 09:35] VITALS: BP 112/64; PULSE 82; RESP 16; TEMP 36.6
[2022-06-11] MEDS: OXYTOCIN PREMIX 30 UNIT/500 ML PLAST..BAG IV (12:32)
--- NOTE | 2022-06-11 12:34 | PM.OBPNLAB ---
Date/Time Date Patient Seen: 06/11/22 Time Patient Seen: 12:34 Pain Control Pain control: tolerating well Pelvic Exam Dilation (cm): 1 Effacement (%): 80 station: -2 Amniotic membrane status: Intact Contractions Contractions on admission: none Monitor mode: External Contraction pattern: Irregular Contraction phase: Resting Contraction intensity: Moderate Status status: Category l Heart Rate Baseline: 135 Monitor Accelerations: Present Monitor Decelerations: Absent Monitor Variability: Moderate Assessment and Plan Assessment: induction ongoing Plan: begin patient augmentation Comments: Little chaange with PO cytotec. Will initiate pitocin augmentation. OK for DARYL as desired.
[2022-06-11] MEDS: LACTATED RINGERS 1,000 ML 100 ML IV ×3 (17:45→20:26)
[2022-06-11] MEDS: FENT 2MCG/ML BUPIV 0.125% EPI 200 MCG/100 ML PLAST..BAG 6 MCG EPIDURAL (18:35)
[2022-06-11] MEDS: ePHEDrine 50 MG/ML VIAL 10 MG IV (20:22)
[2022-06-11] MEDS: PENICILLIN G POTASSIUM 5,000,000 UNIT in DEXTROSE 5% IN WATER 250 ML 250 UNIT IV (20:56)
--- NOTE | 2022-06-11 22:53 | PM.OBPNLAB ---
Date/Time Date Patient Seen: 06/11/22 Time Patient Seen: 18:00 Pain Control Pain control: tolerating well Comments: 22yo P0 at 39.0 admitted for IOL. - s/p 3 doses of cytotec, now on pitocin - + pain with contractions - s/p epidural Pelvic Exam Dilation (cm): 3 Effacement (%): 80 station: -2 Amniotic membrane status: Intact Contractions Contractions on admission: irregular Monitor mode: External Contraction pattern: Irregular Contraction phase: Resting Contraction intensity: Moderate Status status: Category l Monitor Accelerations: Present Monitor Decelerations: Absent Monitor Variability: Moderate Assessment and Plan Assessment: induction ongoing Plan: continuous present management Comments: s/p epidural Continue pitocin for induction / augmentation AROM if needed continuous monitoring GBS prophylaxis
--- NOTE | 2022-06-12 02:15 | PM.OBPRVD ---
Events: Labor Induction and Labor Augmentation Labor & Delivery Delivery date: 06/12/22 Intrapartal Events: None Cervical ripening method: per misoprostal protocol Induction method: per pitocin protocol Delivery augmentation: pitocin Delivery monitor: external FHT and external uterine Route of delivery: Episiotomy description: None L&D Laceration Description: Perineal - 1st Degree Delivery repair: vicryl Estimated blood loss (mL): 200 Anesthesia Type: Epidural Baby 1: Infant gender: Female Presentation: vertex Position: Left Occiput Anterior Placenta delivery description: Spontaneous Cord Vessel Description: 3 Vessels score (1 min): 8 score (5 min): 9 Narrative: patient found to be 10/100/+1 with urge to push. With adequate maternal pushing, descent was noted. From a vertex position, a viable female infant was delivered over an intact perineum, atraumatically. APGARs 8/9. Weight pending at time of note. Placenta delivered spontaneously. EBL: 200cc bruising noted on right labia, nonexpanding 1st degree perineal laceration repaired with 2-0 vicryl. Plan for aftercare: Routine care
[2022-06-12] MEDS: IBUPROFEN 600 MG TABLET PO (03:37)
[2022-06-12] MEDS: DERMOPLAST SPRAY 20% 60 ML 1 SPRAY TOP (03:38)
[2022-06-12] MEDS: ACETAMINOPHEN 325 MG TABLET 650 MG PO (03:38)
[2022-06-12] MEDS: LANOLIN OINT 7 GM 1 APPLIC TOP (03:39)
[2022-06-12] MEDS: DOCUSATE 100 MG CAPSULE PO (09:39)
[2022-06-12] MEDS: ACETAMINOPHEN SUSP 650 MG/20.3 ML UDC PO ×2 (10:31→17:02)
[2022-06-12] MEDS: IBUPROFEN SUSP 100 MG/5 ML UDC 695 MG PO ×2 (10:31→17:03)
--- NOTE | 2022-06-12 11:30 | PM.NBHP.1 ---
History History Baby Girl Sites was born at 39 and 1/7 weeks to a 22-year-old via spontaneous vaginal delivery 1:43 a.m. on 06/12/2022. GBS positive, received adequate prophylaxis, rupture of membranes 5 hours 18 minutes with clear fluid, Apgars 8 and 9. course uneventful care: good care Dating criteria: LMP confirmed by 1st trimester US Ultrasounds: normal 1st trimester US and normal mid trimester US Obstetrical complications: none Medical complications: none Preadmission Labs Blood type: O (+) positive -: Antibody screen: negative, GBS status: positive, HBsAG: negative, HIV: negative and RPR/VDLR: negative -: Chlamydia screen: not detected and Gonorrhea screen: not detected -: Rubella: immune and Varicella: not immune HCT: 36.7 HCAB: negative PAP: Normal Quad screen: Normal (AFP screening is negative ) Cell-free DNA: Low risk female 1 hr GTT: 88 Prior (ies) History: SAB x4 Temperature: 97.5? F Heart rate: 139 beats per minute Respiration: 45 per minute weight: 2726 g (SGA) GENERAL: well-developed, well-nourished , no dysmorphic features. HEAD: normal size and shape, fontanels flat and soft. EYES: red reflex present bilaterally, conjugate gaze without apparent strabismus ENT: nares patent, no clefts, ear canals patent, tympanic membranes normal NECK: supple and without masses, no torticollis noted CLAVICLES: no deformities CHEST: symmetrical, lungs clear bilaterally HEART: Regular rhythm, normal S1 & S2, no murmurs, 2+ femoral pulses b/l ABDOMEN: Normal bowel sounds, soft, nontender, no masses, no organomegaly. : Adithya 1 female; parent present for entirety of the exam MUSCULOSKELETAL: normal with spine intact and no extremity defects HIPS: normal hip abduction, no Ortolani or Barriga sign SKIN: no rashes or jaundice noted NEURO: normal reflexes, moves all four extremities Since delivery, the infant has been doing well and has been x [] OR bottle feeding x []. has had [] stools and [] wet diapers. Social Hx: [] plans to receive care at []. This is a 2726 SGA female , born at 391/weeks to a 22-year-old now mother via 1:43 a.m. on 06/12/2022. Infant is transitioning well - Admit to Mother-Baby Unit, routine well baby care. - BG protocol for SGA - Hepatitis B vaccine, Vitamin K, and erythromycin ointment - Breast breast feeding support. - Follow up in 24 hours for jaundice screen and weight loss evaluation. - screen, hearing screen and CCHD prior to discharge. Exam - Pediatric Vital Signs Vital Signs: Vital Signs BP 122/79 06/10/22 20:00 Objective Labs 06/10/22 20:15 Sarnat Scoring Scale [place] HB, Bandar L, Maliha C, Cipriano LM, Matt C, Soledad K. Sarnat grading scale for encephalopathy after 45 years: an update proposal. Pediatr Neurol. 2020;113:75?9.
[2022-06-12] MEDS: KETOROLAC 30 MG/ML VIAL 15 MG IV (23:03)
[2022-06-13 06:39] LABS: Basophils Absolute Auto 100 /uL (0-100); Basophils Percent Auto 0.5 % (0-2); Eosinophils Absolute Auto 100 /uL (0-450); Eosinophils Percent Auto 1.2 % (2-4); Hematocrit 39.5 % (36-46); Hemoglobin 12.7 g/dL (12.0-16.0); Lymphocytes Absolute Auto 3100 /uL (1100-4500); Lymphocytes Percent Auto 23.6 % (25-40); Mean Corpuscular HGB Conc 32.2 % (30-36); Mean Corpuscular Hemoglobin 26.8 PG (26-34); Mean Corpuscular Volume 83.2 fL (80-100); Monocytes Absolute Auto 1100 /uL (0-900); Monocytes Percent Auto 8.4 % (3-14); Neutrophils Absolute Auto 8700 /uL (1500-7000); Neutrophils Percent Auto 66.3 % (50-75); Platelet Count 129 X10^3/uL (150-400); Red Blood Cell Count 4.75 X10^6/uL (4.0-5.2); Red Cell Distribution Width 27.9 % (11.6-14.8)
[2022-06-13 06:41] LABS: Add Manual Diff / Slide Review SLIDE REVIEW
--- NOTE | 2022-06-13 07:15 | PM.OBDS.1 ---
Discharge Providers Provider Date of admission: 06/10/22 19:41 Discharge Date: 06/13/22 Primary care physician: Jesusita GÓMEZ Provider Consults: 06/10/22 20:00 Consult to Anesthesiology Urgent Comment: Consulting Provider: Channing Bragg Reason for consultation: Epidural Has provider been notified: No 06/13/22 02:10 Consult to Weaving Machine Operator Routine Comment: Discharge provider: Delvin Garrett MD Summary Hospital Course Date Patient Seen: 06/13/22 Time Patient Seen: 06:30 Diagnoses: IOL of Labor Hospital Course: 22yo now P1 admitted for IOL with cytotec and pitocin, and subsequently underwent vaginal delivery. Please see delivery notes for complete details. course was uncomplicated. on PPD 1, she was ambulating voiding / tolerating a regular diet. breast feeding without difficulty. Pain well controlled. Peripartum Data Infant Delivery Method: Natural Vaginal Laceration Description: Vaginal - 1st Degree complications: none Status at Discharge Cognitive/behavioral status at discharge: oriented Functional status at discharge: independent ambulation Overall status at discharge: patient is back to baseline Time Spent with Patient Time attestation: Total time spent providing and/or coordinating discharge services: Time spent: Less than 30 minutes Objective Labs 06/13/22 06:22 Labs: Laboratory Results - last 24 hr 06/13/22 06:22 WBC 13.0 H RBC 4.75 Hgb 12.7 Hct 39.5 MCV 83.2 MCH 26.8 MCHC 32.2 RDW 27.9 H Plt Count 129 L Neut % (Auto) 66.3 Lymph % (Auto) 23.6 L [place] % (Auto) 8.4 Eos % (Auto) 1.2 L Baso % (Auto) 0.5 Neut # (Auto) 8700 H Lymph # (Auto) 3100 [place] # (Auto) 1100 H Eos # (Auto) 100 Baso # (Auto) 100 Exam Const General: cooperative Chest Chest: normal inspection of the chest Breast inspection: normal inspection of the breasts Resp Effort & Inspection: normal respiratory effort Cardio Rate: regular rate Rhythm: regular rhythm GI Inspection: normal to inspection General: other (Fundus 2cm below umbilicus ) External Female Exam: normal external appearance Skin General: no rashes or lesions noted Discharge Plan Discharge Plan Patient Disposition: Home Discharge orders & Medications Prescriptions: New acetaminophen [Children's Acetaminophen] 160 mg/5 mL Suspension 650 mg PO Q6HR PRN (Reason: Fever/Mild Pain (1-3)) 7 Days Qty: 30 0RF Continued sertraline 25 mg tablet See Rx Instructions PO .COMPLEX Qty: 60 1RF Patient Comments: Pt reports not taking any meds currently Rx Instructions: 1 tab daily for 1 week then 2 tabs daily orally; Follow up/Referrals: ProviderJesusita [Primary Care Provider] - Channing Bragg MD [Physician] - 6 Weeks Diet/Activity/Treatments Diet: Diet as Tolerated Visit Report/Discharge Packet Stand Alone Forms: Discharge: Care, Patient Portal/API, Stroke Signs & Symptoms Discharge Data Primary Care Provider: ProviderJesusita Discharges patient from system. Discharge Date/Time: 06/13/22 13:28
[2022-06-13 07:37] LABS: Anisocytosis 2+
[2022-06-13 13:00] VITALS: BP 113/78; PULSE 78; RESP 16; TEMP 37.6
== END 2022-06-13 13:28 | disposition home or self-care (01) | DRG 807 ==
PROVIDERS: Obstetrics & Gynecology; Admitting Provider Obstetrics & Gynecology; Referring Provider Obstetrics & Gynecology; Visit Provider Obstetrics & Gynecology
DX: O99.824 Streptococcus B carrier state complicating childbirth (principal); Z37.0 Single live birth; O99.892 Other specified diseases and conditions complicating childbirth; M25.552 Pain in left hip; Z3A.38 38 weeks gestation of pregnancy; O70.0 First degree perineal laceration during delivery
CPT/HCPCS: 36415; 59050; 59200; 59400; 59409; 85025; 86850; 86900; 86901; G0379; J1885; J2540; J2590

== ENCOUNTER 2022-11-21 20:19 | Emergency (ER) | payer OTHER, SELFPAY ==
[2022-11-21 20:26] VITALS: BP 117/68; PULSE 81; RESP 18; TEMP 36.6; O2SAT 100; BMI 52.7
--- NOTE | 2022-11-21 21:09 | PC.NURSE ---
Patient endorses a couple days of nausea/vomiting and this morning she started having cramping. She is 10 weeks and has a 5 month old baby at home. History of 5 miscarriages; no spotting or bleeding at this time.
--- NOTE | 2022-11-21 22:03 | DI.US.S_ITS ---
PROCEDURE: US OB <= 14 WEEKS FETUS INDICATIONS: CRAMPING OUTSIDE/PRIOR DATING DATA: Last menstrual period (LMP): Unknown. LMP-based estimated date of delivery ([facility]): Not applicable. First dating scan (date and location): Today. Estimated date of delivery ([facility]) from first dating scan: 06/26/2023. TECHNIQUE: Real-time scanning was performed of the fetus and maternal pelvic organs, with image documentation. COMPARISON: [facility], US, US OB <= 14 WEEKS FETUS, 12/02/2021, 14:18. FINDINGS: Yolk sac is present. [place]-rump length is 2.4 centimeters. Ultrasound age of 9 weeks. Heart rate is 175 beats per minute. Perigestational hemorrhage measuring 3.5 x 1.4 x 1.3 centimeters. Bilateral ovaries within normal limits by ultrasound. IMPRESSION: Living intrauterine gestation at an ultrasound age of 9 weeks. Small perigestational hemorrhage. Dictated by: Jefe Mcmahon M.D. on 11/21/2022 at 23:34 Approved by: Jefe Mcmahon M.D. on 11/21/2022 at 23:36
[2022-11-21] MEDS: SODIUM CHLORIDE 0.9% 1,000 ML 1000 ML IV (22:29)
[2022-11-21 22:49] LABS: Add Manual Diff / Slide Review NO; Basophils Absolute Auto 100 /uL (0-100); Basophils Percent Auto 0.8 % (0-2); Eosinophils Absolute Auto 200 /uL (0-450); Eosinophils Percent Auto 1.8 % (2-4); Hematocrit 38.2 % (36-46); Hemoglobin 13.3 g/dL (12.0-16.0); Lymphocytes Absolute Auto 3000 /uL (1100-4500); Lymphocytes Percent Auto 30.7 % (25-40); Mean Corpuscular HGB Conc 34.7 % (30-36); Mean Corpuscular Hemoglobin 29.3 PG (26-34); Mean Corpuscular Volume 84.5 fL (80-100); Monocytes Absolute Auto 800 /uL (0-900); Monocytes Percent Auto 8.3 % (3-14); Neutrophils Absolute Auto 5700 /uL (1500-7000); Neutrophils Percent Auto 58.4 % (50-75); Platelet Count 300 X10^3/uL (150-400); Red Blood Cell Count 4.53 X10^6/uL (4.0-5.2); Red Cell Distribution Width 12.9 % (11.6-14.8); White Blood Cell Count 9.7 X10^3/uL (4.5-11.0)
[2022-11-21 22:59] LABS: Alanine Aminotransferase 15 IU/L (<35); Albumin 3.9 g/dL (3.5-5.0); Albumin Globulin Ratio 1.3 (1.0-2.8); Alkaline Phosphatase 44 U/L (38-126); Aspartate Aminotransferase 20 IU/L (14-36); BUN Creatinine Ratio 15.6 (6-22); Bilirubin Total 0.2 mg/dL (0.2-1.3); Blood Urea Nitrogen 7 mg/dL (7-17); Calcium 9.1 mg/dL (8.4-10.2); Carbon Dioxide 21 mmol/L (22-32); Chloride 106 mmol/L (98-107); Estimated Glomerular Filt Rate > 60 mL/min (>60); Globulin 3.1 g/dL (1.7-4.1); Glucose 84 mg/dL (70-100); HEMOLYSIS < 15 (0-50); Potassium 3.5 mmol/L (3.4-5.1); Sodium 136 mmol/L (137-145)
--- NOTE | 2022-11-21 23:36 | ED_ITS ---
HPI - Female Genitourinary General Chief complaint: OB/Uterine Contractions Stated complaint: 10 wks , cramping Time Seen by Provider: 11/21/22 22:03 Source: patient Mode of arrival: Ambulatory History of Present Illness HPI Narrative: Patient is a 22-year-old female presenting today with and cramping. She denies any vaginal bleeding. She reports nausea and vomiting. She has a 5-month-old. She has no back pain fever or chills. She is tolerating fluids. No significant vomiting. But was worried because of cramping and previous miscarriages. Related Data Previous Rx's Medication Instructions Recorded sertraline 25 mg tablet See Rx Instructions PO .COMPLEX 12/02/21 #60 tabs Allergies Allergy/AdvReac Type Severity Reaction Status Date / Time cantaloupe AdvReac Mild Rash Verified 06/11/22 03:58 Review of Systems Review of Systems ROS Unobtainable: All systems reviewed & are unremarkable except as noted in HPI and below Patient History Medical History Acne ADHD Anemia (~2020) Anxiety Autism Depression History of recurrent miscarriages Ovarian cyst (~2020) PID (acute pelvic inflammatory disease) PTSD (post-traumatic stress disorder) (~2019) Recurrent candidiasis of vagina Recurrent UTI (~2019) Seizures (~2002) Surgical History Anesthesia H/O hand surgery History of removal of skin mole Family History Father Diabetes mellitus Mental health problem Grandmother Diabetes mellitus Lung cancer Cancer Mental health problem Hypertension Grandfather Diabetes mellitus Prostate cancer Cancer History of heart disease Mental health problem Mother Gestational diabetes Diabetes mellitus Mental health problem Grandmother Cancer Hypertension Hyperlipidemia Grandfather Family estrangement Sister Depression Anxiety Schizophrenia Sister Anxiety Depression Bipolar disorder Sister Anxiety Depression Autism Brother Anxiety Depression Autism Mental health problem Sister Anxiety Autism alcohol intake frequency: holidays/special occasions only Substance Use Type: does not use Exam Initial Vital Signs Initial Vital Signs: Vital Signs Temperature 97.8 F 11/21/22 20:26 Pulse Rate 81 11/21/22 20:26 Respiratory Rate 18 11/21/22 20:26 Blood Pressure 117/68 11/21/22 20:26 Pulse Oximetry 100 11/21/22 20:26 Oxygen Delivery Method Room Air 11/21/22 20:26 GENERAL: Fall or well-appearing 22-year-old female and in no acute distress. HEENT: Head atraumatic,EOMI, pupils reactive, face symmetric, moist mucous membranes CARDIOVASCULAR: Regular rate and rhythm without murmurs, rubs or gallops. RESPIRATORY: Breath sounds equal bilaterally, no wheezes rales or rhonchi. ABDOMEN: Soft, nontender. Normoactive bowel sounds all 4 quadrants. No guardin g or rebound. EXTREMITIES: Normal range of motion, no clubbing or edema. Neurovascularly intact NEUROLOGICAL: Alert and oriented x4. SKIN: Warm, dry, no laceration, no petechiae, no rashes or lesions. Course Orders Ordered: ED Orders 11/21/22 22:03 US OB <= 14 weeks fetus Stat 11/21/22 22:35 CBC Auto Diff [Complete Blood Count AUTO DIFF] Stat CMP [Comprehensive Metabolic Panel] Stat HCG Quantitative /Beta subunit Stat Discontinued Medications Sodium Chloride (Normal Saline 0.9%) 1,000 mls @ 1,000 mls/hr IV BOLUS ONE Stop: 11/21/22 23:02 Last Infusion: 11/21/22 23:35 Dose: 0 mls/hr Documented By: Admin: 11/21/22 22:29 Dose: 1,000 mls/hr Documented By: RED Vital Signs Vital signs: Vital Signs - 8 hr 11/22/22 00:04 Pulse Rate 72 Respiratory Rate 16 Blood Pressure 118/64 Pulse Oximetry 100 Oxygen Delivery Method Room Air MDM - Female Genitourinary Lab Data 11/21/22 22:35 11/21/22 22:35 Labs: Lab Results 11/21/22 11/21/22 Range/Units 22:35 22:35 WBC 9.7 (4.5-11.0) X10^3/uL RBC 4.53 (4.0-5.2) X10^6/uL Hgb 13.3 (12.0-16.0) g/dL Hct 38.2 (36-46) % MCV 84.5 (80-100) fL MCH 29.3 (26-34) PG MCHC 34.7 (30-36) % RDW 12.9 (11.6-14.8) % Plt Count 300 (150-400) X10^3/uL Neut % (Auto) 58.4 (50-75) % Lymph % (Auto) 30.7 (25-40) % [place] % (Auto) 8.3 (3-14) % Eos % (Auto) 1.8 L (2-4) % Baso % (Auto) 0.8 (0-2) % Neut # (Auto) 5700 (5628-3539) /uL Lymph # (Auto) 3000 (1706-0219) /uL [place] # (Auto) 800 (0-900) /uL Eos # (Auto) 200 (0-450) /uL Baso # (Auto) 100 (0-100) /uL Sodium 136 L (137-145) mmol/L Potassium 3.5 (3.4-5.1) mmol/L Chloride 106 (98-107) mmol/L Carbon Dioxide 21 L (22-32) mmol/L BUN 7 (7-17) mg/dL Creatinine 0.45 L (0.52-1.04) mg/dL Estimated GFR > 60 (>60) mL/min BUN/Creatinine Ratio 15.6 (6-22) Glucose 84 (70-100) mg/dL Calcium 9.1 (8.4-10.2) mg/dL Total Bilirubin 0.2 (0.2-1.3) mg/dL AST 20 (14-36) IU/L ALT 15 (<35) IU/L Alkaline Phosphatase 44 (38-126) U/L Total Protein 7.0 (6.3-8.2) g/dL Albumin 3.9 (3.5-5.0) g/dL Globulin 3.1 (1.7-4.1) g/dL Albumin/Globulin Ratio 1.3 (1.0-2.8) HCG, Quant 422762 mIU/mL Point of Care Testing Test Results Positive Urine Dip Bedside Urine Glucose Negative Bedside Urine Bilirubin - Negative Bedside Urine Ketone - Negative Urine Specific [place] 1.01 Bedside Urine Occult Blood - Negative Bedside Urine pH 7 Bedside Urine Protein - Negative Bedside Urine Urobilinogen - Negative Bedside Urine Nitrite - Negative Bedside Urine Leukocytes - Negative Esterase Imaging Data US - OB: Radiologist's Impression: PROCEDURE:? US OB <= 14 WEEKS FETUS ? INDICATIONS:? CRAMPING ? OUTSIDE/PRIOR DATING DATA:? Last menstrual period (LMP):? Unknown.? LMP-based estimated date of delivery ([facility]INMAY):? Not applicable.? First dating scan (date and location):? Today.? Estimated date of delivery (CHINMAY) from first dating scan:? 06/26/2023. ? TECHNIQUE:? Real-time scanning was performed of the fetus and maternal pelvic organs, with image documentation.? ? COMPARISON:? [facility], , OB <= 14 WEEKS FETUS, 12/02/2021, 14:18. ? FINDINGS:? Yolk sac is present.? [place]-rump length is 2.4 centimeters.? Ultrasound age of 9 weeks.? Heart rate is 175 beats per minute.? Perigestational hemorrhage measuring 3.5 x 1.4 x 1.3 centimeters. ? Bilateral ovaries within normal limits by ultrasound. ? IMPRESSION:? Living intrauterine gestation at an ultrasound age of 9 weeks.? Small perigestational hemorrhage. ? Dictated by: Jefe Mcmahon M.D. on 11/21/2022 at 23:34 ? ? Approved by: Jefe Mcmahon M.D. on 11/21/2022 at 23:36 ? MDM Narrative Medical decision making narrative: Patient 3-year-old female G 7p1 currently presenting with cramping. Ultrasound confirms a 9 week IUP with subchorionic hemorrhage. Patient denies any vaginal bleeding. HCG is [id number]. She would a baby earlier this year in his blood type O positive based on previous blood work. No need for RhoGAM and she has no vaginal bleeding. Discharge Plan Departure Patient Disposition: Home Clinical Impression: , Abdominal pain affecting , Subchorionic hemorrhage in first trimester Instructions: DI for -- Discomforts and Remedies Activity Restrictions/Additional Instructions: *You have been diagnosed with abdominal pain and *What to do: At this time he small bleeding around baby. Your currently 9 weeks. Estimated due date is 06/26/2023. You may have some bleeding after ultrasound. Pelvic rest no intercourse. Have hCG rechecked in [address] Bragg office for this order *Continue to take medications as directed *Follow up with your primary care provider in 2-3 days or call [phone] Bragg's office tomorrow *Return to ER if you should have vaginal bleeding more than 2 pads in 1 hour dizziness lightheadedness increasing pain and cramps or any new, worsening or concerning symptoms Prescriptions: No Action sertraline 25 mg tablet See Rx Instructions PO .COMPLEX Qty: 60 1RF Patient Comments: Pt reports not taking any meds currently Rx Instructions: 1 tab daily for 1 week then 2 tabs daily orally; Referrals: ProviderJesusita [Primary Care Provider] - Stand Alone Forms: Patient Portal/API
[2022-11-21 23:41] LABS: HCG Quantitative /Beta subunit 195470 mIU/mL
[2022-11-22 00:04] VITALS: BP 118/64; PULSE 72; RESP 16; O2SAT 100
== END 2022-11-22 00:07 | disposition home or self-care (01) ==
PROVIDERS: Emergency Provider Emergency Medicine
DX: O41.8X10 Other specified disorders of amniotic fluid and membranes, first trimester, not applicable or unspecified (principal); Z3A.10 10 weeks gestation of pregnancy
CPT/HCPCS: 36415; 76801; 80053; 81003; 81025; 84702; 85025; 96360; 99284

== ENCOUNTER → 2022-11-23 13:33 | Outpatient (CLI) | payer OTHER, SELFPAY ==
[2022-11-23 15:32] LABS: HCG Quantitative /Beta subunit 223780 mIU/mL
== END ==
PROVIDERS: Referring Provider Obstetrics & Gynecology; Visit Provider Obstetrics & Gynecology
DX: O26.899 Other specified pregnancy related conditions, unspecified trimester (principal); R10.9 Unspecified abdominal pain
CPT/HCPCS: 36415; 84702

== ENCOUNTER → 2022-12-14 16:16 | Outpatient (CLI) | payer OTHER, SELFPAY ==
[2022-12-14 17:31] LABS: Add Manual Diff / Slide Review NO; Basophils Absolute Auto 0 /uL (0-100); Basophils Percent Auto 0.2 % (0-2); Eosinophils Absolute Auto 100 /uL (0-450); Eosinophils Percent Auto 1.2 % (2-4); Hematocrit 39.1 % (36-46); Hemoglobin 13.8 g/dL (12.0-16.0); Lymphocytes Absolute Auto 2000 /uL (1100-4500); Lymphocytes Percent Auto 22.7 % (25-40); Mean Corpuscular HGB Conc 35.3 % (30-36); Mean Corpuscular Hemoglobin 29.8 PG (26-34); Mean Corpuscular Volume 84.4 fL (80-100); Monocytes Absolute Auto 500 /uL (0-900); Neutrophils Absolute Auto 6100 /uL (1500-7000); Neutrophils Percent Auto 69.9 % (50-75); Platelet Count 265 X10^3/uL (150-400); Red Blood Cell Count 4.64 X10^6/uL (4.0-5.2); Red Cell Distribution Width 12.6 % (11.6-14.8); White Blood Cell Count 8.7 X10^3/uL (4.5-11.0)
[2022-12-15 13:57] LABS: Varicella IgG Antibody 157 index (Immune >165)
[2022-12-16 15:24] LABS: Hepatitis B Surface Antigen NEGATIVE s/c (NEGATIVE); Rubella Antibody IgG 21.5 IU/mL (>15)
[2022-12-16 15:41] LABS: HIV 1 & 2 Ab/Ag 4th Gen Combo NEGATIVE (NEGATIVE); Hep C Virus Ab w/Reflex Quant NEGATIVE s/c (NEGATIVE)
[2022-12-20 07:11] LABS: RPR Screen Non Reactive (Non Reactive)
== END ==
PROVIDERS: Obstetrics & Gynecology; Referring Provider Obstetrics & Gynecology; Visit Provider Obstetrics & Gynecology
DX: Z34.02 Encounter for supervision of normal first pregnancy, second trimester (principal)
CPT/HCPCS: 36415; 80055; 86787; 86803; 86850; 86900; 86901; 87086; 87389

== ENCOUNTER 2023-01-09 21:01 | Emergency (ER) | payer OTHER, SELFPAY ==
[2023-01-09 21:37] VITALS: BP 98/66; PULSE 86; RESP 18; TEMP 37; O2SAT 99; BMI 53.1
--- NOTE | 2023-01-09 21:44 | DI.US.S_ITS ---
PROCEDURE: US OB LIMITED INDICATIONS: BLEEDING OUTSIDE/PRIOR DATING DATA: Last menstrual period (LMP): Unknown LMP-based estimated date of delivery (CHINMAY): Unknown First dating scan (date and location): 11/21/2022. Estimated date of delivery (CHINMAY) from first dating scan: 06/26/2023. The calculations are made using the ultrasound CHINMAY of 06/26/2023. TECHNIQUE: Real-time scanning was performed of the fetus, with image documentation and biometric measurements. COMPARISON: [facility], , OB <= 14 WEEKS FETUS, 11/21/2022, 22:59. FINDINGS: General: A single living intrauterine gestation is present. Presentation: Breech. Placenta: Placental position is anterior , without previa. Amniotic fluid index: 9.1 cm, normal range is 5-24 cm. Single deepest vertical pocket is 2.8 cm. heart rate: 150 beats per minute. Maternal cervical canal: 3.1 cm long. Normal lower limit is 2.5 cm. biometrics: Composite gestational age from initial scan: 16 weeks 0 days Other: Not applicable. IMPRESSION: Single live intrauterine with ultrasound gestational age of 16 weeks 0 days. Placenta is unremarkable. No evidence abruption. We strive to produce accurate, complete, and clear reports of imaging services. To assist us in improving patient care, this report was composed using standard report templates and voice recognition software. Therefore, it may contain abnormal punctuation, insertions and/or omissions. Occasional wrong-word or sound-alike substitutions may occur. Though we review the report and make efforts to correct it, we do recommend that the report be read carefully in proper context to recognize any text inaccuracies. Dictated by: Ana Short M.D. on 01/09/2023 at 23:20 Approved by: Ana Short M.D. on 01/09/2023 at 23:21
--- NOTE | 2023-01-10 01:48 | ED.GENADULT ---
HPI - General Adult General Chief complaint: Vaginal Bleeding Stated complaint: 16 weeks preg/cramping bleeding Time Seen by Provider: 01/10/23 01:04 Source: patient and family Mode of arrival: Ambulatory History of Present Illness HPI narrative: 22-year-old with 1st delivery earlier this year currently 16 weeks who presents with painless red vaginal bleeding. She states that she was sitting at the table and noticed that her perineum when completely numb. She went to the bathroom and noticed some bright red blood on the tissue. She had some minor cramping. Symptoms have since resolved she is having no additional vaginal discharge, dysuria, cramping or bleeding. She describes no flank pain, constipation or diarrhea. She has not had any recent fevers cough or chills Related Data Home Medications Medication Instructions Recorded Confirmed [id number] 400 mcg-om3 35 mg-dha 25 tab PO 12/06/22 12/14/22 mg-epa 5 mg-fish oil chewable tablet folic acid 800 mcg tablet 0.8 mg PO DAILY 12/06/22 12/14/22 Previous Rx's Medication Instructions Recorded sertraline 25 mg tablet See Rx Instructions PO .COMPLEX 12/09/22 #60 tabs Allergies Allergy/AdvReac Type Severity Reaction Status Date / Time cantaloupe AdvReac Mild Rash Verified 12/14/22 15:14 Review of Systems Review of Systems Narrative: Pertinent positive and negative findings as per HPI Patient History Medical History Diarrhea uterine contractions Gastroenteritis Seizures (~2002) Anemia (~2020) Ovarian cyst (~2020) PID (acute pelvic inflammatory disease) PTSD (post-traumatic stress disorder) (~2019) Recurrent candidiasis of vagina Recurrent UTI (~2019) History of recurrent miscarriages Surgical History Anesthesia H/O hand surgery History of removal of skin mole Family History Father Diabetes mellitus Depression Anxiety Grandmother Diabetes mellitus Lung cancer Cancer Hypertension Ovarian cancer Depression Grandfather Diabetes mellitus Prostate cancer Cancer History of heart disease Depression Mother Gestational diabetes Diabetes mellitus Schizophrenia Depression Anxiety Grandmother Cancer Hypertension Hyperlipidemia Grandfather Family estrangement Sister Depression Anxiety Schizophrenia Sister Anxiety Depression Bipolar disorder Sister Anxiety Depression Autism Brother Anxiety Depression Autism Social History marital status: number of children: 1 household members: spouse and children lives independently: Yes caregiver/support person: Yes housing: apartment pets and animals: Yes (1 cat; aware of toxo) education level: high school occupational status: unemployed current occupational exposures/hazards: No special festus needs: No travel history: recent (domestic only) seatbelt use: always water heater temp set < 120 deg: No (Will call landlord to adjust ) working smoke detector in home: Yes fire extinguisher in home: Yes carbon monox detector in home: Yes firearms in home: Yes firearms unloaded and locked: Yes do you feel safe at home: Yes Smoking Status: Never smoker second hand exposure: Yes ( smokes) alcohol intake: former (occasionally) substance use type: marijuana (quit when she learned she was w/ first child) during the past year weight has: other (Daughter is only ~6 months, back to pre- wt) well-balanced diet: rarely or never daily servings fruits/ve-1 caffeine: Yes (occasionally, aware of 200mg limit) Type(s) of exercise: walking duration: 15-30 minutes/day Smoking Status: Never smoker alcohol intake frequency: holidays/special occasions only Substance Use Type: does not use Exam Initial Vital Signs Initial Vital Signs: Vital Signs Temperature 98.6 F 01/09/23 21:37 Pulse Rate 86 01/09/23 21:37 Respiratory Rate 18 01/09/23 21:37 Blood Pressure 98/66 01/09/23 21:37 Pulse Oximetry 99 01/09/23 21:37 Oxygen Delivery Method Room Air 01/09/23 21:37 General: Alert appropriate in no acute distress Respiratory: Able to speak in full sentences, no obvious respiratory distress Skin: No obvious rashes, warm and dry Neurologic: Grossly intact no obvious asymmetries or abnormalities Psych: appropriate insight and affect, cooperative Course Orders Ordered: ED Orders 01/09/23 21:44 US OB limited Stat Vital Signs Vital signs: Vital Signs - 8 hr 01/09/23 21:37 Temperature 98.6 F Pulse Rate 86 Respiratory Rate 18 Blood Pressure 98/66 Pulse Oximetry 99 Oxygen Delivery Method Room Air Medical Decision Making MDM Narrative Medical decision making narrative: CC: Painless red vaginal bleeding at 16 weeks Data collected from: patient, Differential considered: Placenta previa, subchorionic hemorrhage, miscarriage, cervical bleeding Exam documented above, pertinent findings include: No acute findings Imaging studies independently reviewed: Ob ultrasound shows single live fetus, heart rate at 150. Measuring 16 weeks consistent with prior ultrasounds and dates. No evidence of placenta previa or placental abruption Discussion: 22-year-old woman with an episode of red vaginal bleeding this evening. No evidence of impending miscarriage, distress, placental abnormalities or alternate explanations that would require additional workup or hospitalization at this time. He is findings reviewed with the patient and her . She does have a follow-up appointment with her OBGYN in 3 days and she will be keeping this. I did recommend pelvic rest until she talks with her OBGYN. She is safe for discharge Discharge Plan Departure Patient Disposition: Home Clinical Impression: Vaginal bleeding before 22 weeks gestation Instructions: DI for Vaginal Bleeding During Activity Restrictions/Additional Instructions: Thank you for coming in today The ultrasound that we did of your baby was very reassuring. The baby looks happy and is moving around and has a heartbeat at 150 beats per minute which is healthy It does not look like you are in early labor, there is no cervical change, the placenta looks healthy and there is no evidence that it is too close to the cervix or that there is blood under the placenta. At this time, everything looks healthy. I do not have an explanation for the numbness that you experienced but I am glad that it is gone. I would recommend pelvic rest for the next couple of days and do keep your appointment on Tuesday with your OB provider If you find that you are getting worse or develop any new symptoms, please feel free to return to the emergency department for further evaluation. Prescriptions: No Action [id number] oil 400 mcg-35 mg -25 mg-5 mg tablet,chewable PO folic acid 800 mcg tablet 0.8 mg PO DAILY sertraline 25 mg tablet See Rx Instructions PO .COMPLEX Qty: 60 1RF Patient Comments: Pt reports not taking any meds currently Rx Instructions: 1 tab daily for 1 week then 2 tabs daily orally; Referrals: Provider,Jesusita GÓMEZ [Primary Care Provider] - Channing Bragg MD [Physician] - Stand Alone Forms: Patient Portal/API
[2023-01-10 02:04] VITALS: BP 106/68; PULSE 74; RESP 16; TEMP 36.8; O2SAT 98
== END 2023-01-10 02:05 | disposition home or self-care (01) ==
PROVIDERS: Emergency Provider Emergency Medicine
DX: O20.9 Hemorrhage in early pregnancy, unspecified (principal); Z3A.16 16 weeks gestation of pregnancy
CPT/HCPCS: 76815; 99281; 99283

== ENCOUNTER → 2023-01-12 15:15 | Outpatient (CLI) | payer OTHER, SELFPAY ==
[2023-01-17 15:03] LABS: AFP Value 32.5 ng/mL (.); Gest Age on Col Date 16.7 weeks (.); Gestational Age EDD (.); Insulin Dep Diabetes No (.); OSBR Risk 1IN 10000 (.); Results Report (.); Test Results *Screen Negative* (.)
== END ==
PROVIDERS: Referring Provider Obstetrics & Gynecology; Visit Provider Obstetrics & Gynecology
DX: Z34.82 Encounter for supervision of other normal pregnancy, second trimester (principal); Z3A.16 16 weeks gestation of pregnancy
CPT/HCPCS: 36415; 82105

== ENCOUNTER → 2023-02-02 12:23 | Outpatient (CLI) | payer OTHER, SELFPAY ==
--- NOTE | 2023-02-02 12:25 | DI.US.S_ITS ---
PROCEDURE: US OB >= 14 WEEKS FETUS INDICATIONS: ANATOMY OUTSIDE/PRIOR DATING DATA: Last menstrual period (LMP): Unknown. LMP-based estimated date of delivery (CHINMAY): Un known. First dating scan (date and location): 11/21/2022. Estimated date of delivery (CHINMAY) from first dating scan: 06/26/2023. The calculations are made using the ultrasound [facility]IN[facility] of 06/26/2023. TECHNIQUE: Real-time scanning was performed of the fetus, with image documentation and biometric measurements. COMPARISON: OB ultrasound 01/09/2023. FINDINGS: General: A single living intrauterine gestation is present. Presentation: Vertex Placenta: Placental position is anterior, without previa. Large new placental Todd measuring 9.8 x 1.8 cm versus subchorionic hemorrhage. Amniotic fluid index: 10.4 cm, normal range is 5-24 cm. Single deepest vertical pocket is 3.2 cm. heart rate: 137 beats per minute. Maternal cervical canal: 3.8 cm long. Normal lower limit is 2.5 cm. biometrics: Biparietal diameter: 4.5 cm, 19 weeks 3 days Head circumference: 16.7 cm, 19 weeks 2 days Abdominal circumference: 14.1 cm, 19 weeks 3 days Femur length: 3.1 cm, 19 weeks 4 days Clinically estimated gestational age: 19 weeks 3 days Composite gestational age from present scan: 19 weeks 3 days Estimated weight and percentile: 296 g, 49th percentile Anatomic survey: Neuro: Ventricles are non-dilated at less than 10 mm. Cisterna magna is normal at 3-11 mm. Cerebellum is normal in size and morphology. Nuchal skin fold: Normal at less than 6 mm between 14-21 weeks gestational age. Face: Nose and lips, facial profile are normal. Spine: No evidence for spina bifida. Heart: 4-chambered heart is present, with normal ventricular outflow tracts. Diaphragm: Diaphragm is intact. Stomach: Left-sided stomach is present. Kidneys: No hydronephrosis. Normal is less than 5 mm in 2nd trimester, less than 7 mm in 3rd trimester. Cord: 3-vessel cord has orthotopic insertion. Bladder: Normal in size. Extremities: All 4 extremities identified. IMPRESSION: 1. Burns living intrauterine at 19 weeks 3 days based on today's ultrasound. Fetus is in the 49th percentile for weight. 2. Normal amniotic fluid. No placental previa. New hypoechoic region within the placenta measuring 9.8 cm. Suspect large placental Todd. Subchorionic hemorrhage is in the differential diagnosis. 3. Normal and complete anatomic survey. Follow-up OB ultrasound may be helpful to evaluate the hypoechoic region in the placenta. We strive to produce accurate, complete, and clear reports of imaging services. To assist us in improving patient care, this report was composed using standard report templates and voice recognition software. Therefore, it may contain abnormal punctuation, insertions and/or omissions. Occasional wrong-word or sound-alike substitutions may occur. Though we review the report and make efforts to correct it, we do recommend that the report be read carefully in proper context to recognize any text inaccuracies. Dictated by: Gilles Webber M.D. on 02/02/2023 at 13:57 Approved by: Gilles Webber M.D. on 02/02/2023 at 14:11
== END ==
PROVIDERS: Referring Provider Obstetrics & Gynecology; Visit Provider Obstetrics & Gynecology
DX: Z34.82 Encounter for supervision of other normal pregnancy, second trimester (principal); Z3A.19 19 weeks gestation of pregnancy
CPT/HCPCS: 76811

== ENCOUNTER → 2023-02-24 15:55 | Outpatient (CLI) | payer OTHER, SELFPAY ==
[2023-02-24 17:24] LABS: Add Manual Diff / Slide Review NO; Basophils Absolute Auto 0 /uL (0-100); Basophils Percent Auto 0.4 % (0-2); Eosinophils Absolute Auto 100 /uL (0-450); Hematocrit 34.7 % (36-46); Lymphocytes Absolute Auto 2200 /uL (1100-4500); Lymphocytes Percent Auto 20.2 % (25-40); Mean Corpuscular HGB Conc 34.5 % (30-36); Mean Corpuscular Hemoglobin 29.8 PG (26-34); Mean Corpuscular Volume 86.2 fL (80-100); Monocytes Absolute Auto 1100 /uL (0-900); Monocytes Percent Auto 10.1 % (3-14); Neutrophils Absolute Auto 7500 /uL (1500-7000); Neutrophils Percent Auto 68.3 % (50-75); Platelet Count 276 X10^3/uL (150-400); Red Blood Cell Count 4.03 X10^6/uL (4.0-5.2); White Blood Cell Count 10.9 X10^3/uL (4.5-11.0)
== END ==
PROVIDERS: Referring Provider Obstetrics & Gynecology; Visit Provider Obstetrics & Gynecology
DX: O26.812 Pregnancy related exhaustion and fatigue, second trimester (principal)
CPT/HCPCS: 36415; 84443; 85025

== ENCOUNTER 2023-03-20 16:26 | Outpatient (CLI) | payer OTHER, SELFPAY ==
--- NOTE | 2023-03-20 19:31 | PM.OBTRLD ---
Visit Information Visit Information Date of evaluation: 03/20/23 On-call OB Provider: Pilar Francisco Comments/Additional reasons for admission: 23yo at 26+2wks presented to triage for r/o PPROM. Reported a gush of fluid earlier today, no further leaking. Denied vaginal bleeding or abdominal pain. Vital Signs Vital Signs: BP 97/52, P 80, T 36.6 PFSH Medical History Diarrhea uterine contractions Gastroenteritis Seizures (~2002) Anemia (~2020) Ovarian cyst (~2020) PID (acute pelvic inflammatory disease) PTSD (post-traumatic stress disorder) (~2019) Recurrent candidiasis of vagina Recurrent UTI (~2019) History of recurrent miscarriages Surgical History Anesthesia H/O hand surgery History of removal of skin mole Family History Father Diabetes mellitus Depression Anxiety Grandmother Diabetes mellitus Lung cancer Cancer Hypertension Ovarian cancer Depression Grandfather Diabetes mellitus Prostate cancer Cancer History of heart disease Depression Mother Gestational diabetes Diabetes mellitus Schizophrenia Depression Anxiety Grandmother Cancer Hypertension Hyperlipidemia Grandfather Family estrangement Sister Depression Anxiety Schizophrenia Sister Anxiety Depression Bipolar disorder Sister Anxiety Depression Autism Brother Anxiety Depression Autism Social History marital status: number of children: 1 household members: spouse and children lives independently: Yes caregiver/support person: Yes housing: apartment pets and animals: Yes (1 cat; aware of toxo) education level: high school occupational status: unemployed current occupational exposures/hazards: No special festus needs: No travel history: recent (domestic only) seatbelt use: always water heater temp set < 120 deg: No (Will call landlord to adjust ) working smoke detector in home: Yes fire extinguisher in home: Yes carbon monox detector in home: Yes firearms in home: Yes firearms unloaded and locked: Yes do you feel safe at home: Yes Smoking Status: Never smoker second hand exposure: Yes ( smokes) alcohol intake: former (occasionally) substance use type: marijuana (quit when she learned she was w/ first child) during the past year weight has: other (Daughter is only ~6 months, back to pre- wt) well-balanced diet: rarely or never daily servings fruits/ve-1 caffeine: Yes (occasionally, aware of 200mg limit) Type(s) of exercise: walking duration: 15-30 minutes/day Review of Systems Review of Systems ROS: Yes All systems reviewed with the patient and are negative except as otherwise documented Evaluation Evaluation Baseline heart rate: 140 Variability: Moderate (11-25) monitor accelerations: Absent Monitor Decelerations: Absent Contraction Frequency (minutes): 0 Category of Tracing: Appropriate for gestational age Non-invasive Membranes Rupture Test: negative Diagnosis, Plan/Disposition Final Diagnosis (1) Encounter for suspected premature rupture of membranes, with rupture of membranes not found: Status: Acute Plan/Disposition Plan: 23yo at 26+2wks evaluated for suspected PPROM. Negative amnisure, appropriate FHR monitoring for GA. -pt discharged home with return precautions -f/u in clinic as scheduled OB Disposition: home
== END 2023-03-20 16:58 | disposition home or self-care (01) ==
LOC: OB 03-22 10:54
PROVIDERS: Referring Provider Student in an Organized Health Care Education/Training Program; Visit Provider Student in an Organized Health Care Education/Training Program
DX: Z03.71 Encounter for suspected problem with amniotic cavity and membrane ruled out (principal); Z3A.26 26 weeks gestation of pregnancy
CPT/HCPCS: 59025; 84112; G0378; G0379